=== PATIENT | female | born 1985 | race Caucasian/White ===

== ENCOUNTER 2022-09-30 12:57 | Emergency (ER) | payer OTHER ==
[2022-09-30 13:01] VITALS: RESP 20
[2022-09-30] MEDS ORDERED: SODIUM CHLORIDE 0.9% 1,000 ML IV ONE (13:42)
--- NOTE | 2022-09-30 13:58 | ED ---
General Adult HPI - General Chief complaint: Alcohol Stated complaint: ETOH Time Seen by Provider: 09/30/22 13:00 Source: patient, RN notes reviewed, old records reviewed Mode of arrival: ambulatory Limitations: no limitations - History of Present Illness Initial comments: This is a 37-year-old female who was in the emergency department because her father brought her in because she isn't toxic. Dad states she wants her to be evaluated so that he can also take a rehabilitation. Patient does not want to stay but that does not want take her so we are obligated to see the patient here. Patient has no complaints and states that she doesn't want to be here if she doesn't want any Ativan and believes all of a sudden lying to her about her having to stay. Patient denies any physical complaints today. - Related Data Home Medications Medication Instructions Recorded Confirmed chlordiazePOXIDE HCl [Librium] See Taper PO DIRECTED 09/30/22 09/30/22 Previous Rx's Medication Instructions Recorded Ibuprofen [Motrin] 400 mg PO Q6HR PRN tab 09/29/22 Thiamine [Vitamin B-1] 100 mg PO DAILY 30 Days #30 tab 09/29/22 Allergies Allergy/AdvReac Type Severity Reaction Status Date / Time No Known Allergies Allergy Verified 09/30/22 13:01 Review of Systems ROS Statement: Those systems with pertinent positive or pertinent negative responses have been documented in the HPI. ROS Other: All systems not noted in ROS Statement are negative. Past Medical History Additional Past Medical History / Comment(s): clean from heroin for 3 years. daily cocaine use for last 1-2 months, drinks up to a 5th of vodka within a day and a half for the last 3months. Depression History of Any Multi-Drug Resistant Organisms: None Reported Past Surgical History: No Surgical Hx Reported Past Anesthesia/Blood Transfusion Reactions: No Reported Reaction Past Psychological History: ADD/ADHD, Anxiety, Depression Smoking Status: Vaper Past Alcohol Use History: Abuse, Daily Past Drug Use History: Cocaine, Heroin - Past Family History Mother Family Medical History: Unable to Obtain Father Family Medical History: Unable to Obtain General Exam - General Exam Comments Initial Comments: GENERAL: Patient is well-developed and well-nourished. Patient is nontoxic and well- hydrated and is in no acute distress. Patient appears intoxicated ENT: Neck is soft and supple. No significant lymphadenopathy is noted. Oropharynx i s clear. Moist mucous membranes. Neck has full range of motion without eliciting any pain. EYES: The sclera were anicteric and conjunctiva were pink and moist. Extraocular movements were intact and pupils were equal round and reactive to light. Eyelids were unremarkable. PULMONARY: Patient wouldn't allow me to do CARDIOVASCULAR: Patient would not allow me to do it ABDOMEN: Patient would not allow me to do it SKIN: Skin is clear with no lesions or rashes and otherwise unremarkable. NEUROLOGIC: Patient is alert and oriented x3. Cranial nerves II through XII are grossly intact. Motor and sensory are also intact. Normal speech, volume and content. Symmetrical smile. MUSCULOSKELETAL: Normal extremities with adequate strength and full range of motion. LYMPHATICS: No significant lymphadenopathy is noted PSYCHIATRIC: Patient is uncooperative and aggravated Limitations: no limitations Course Vital Signs 09/30/22 12:59 Temperature 97.5 F L Pulse Rate 113 H Respiratory 20 Rate Blood Pressure 116/66 O2 Sat by Pulse 98 Oximetry Medical Decision Making - Medical Decision Making Was pt. sent in by a medical professional or institution (LAZARO Cruz, PARAPROFESSIONAL INTERPRETER, urgent care, hospital, or jail...) When possible be specific @ -[No] Did you speak to anyone other than the patient for history (EMS, parent, family, police, friend...)? What history was obtained from this source @ -Father gave quite a bit of the history Did you review nursing and triage notes (agree or disagree)? Why? @ -[I reviewed and agree with nursing and triage notes] Were old charts reviewed (outside hosp., previous admission, EMS record, old EKG, old radiological studies, urgent care reports/EKG's, jail records)? Report findings @ -I reviewed prior lab work and prior charts from prior visits Differential Diagnosis (chest pain, altered mental status, abdominal pain women, abdominal pain men, vaginal bleeding, weakness, fever, dyspnea, syncope, headache, dizziness, GI bleed, back pain, seizure, CVA, palpatations, mental health, musculoskeletal)? @ -[not applicable] EKG interpreted by me (3pts min.). @ -[As above] X-rays interpreted by me (1pt min.). @ -[None done] CT interpreted by me (1pt min.). @ -[None done] U/S interpreted by me (1pt. min.). @ -[None done] What testing was considered but not performed or refused? (CT, X-rays, U/S, labs)? Why? @ -[None] What meds were considered but not given or refused? Why? @ -[None] Did you discuss the management of the patient with other professionals (pr ofessionals i.e. , PA, PARAPROFESSIONAL INTERPRETER, lab, RT, psych nurse, psychotherapist social worker, client insights consultant, teacher, supervisor dog license officer, rehabilitation case coordinator)? Give summary @ -[No] Was smoking cessation discussed for >3mins.? @ -[No] Was critical care preformed (if so, how long)? @ -[No] Were there social determinants of health that impacted care today? How? (Homelessness, low income, unemployed, alcoholism, drug addiction, tra nsportation, low edu. Level, literacy, decrease access to med. care, residential, rehab)? @ -[No] Was there de-escalation of care discussed even if they declined (Discuss DNR or withdrawal of care, Hospice)? DNR status @ -[No] What co-morbidities impacted this encounter? (DM, HTN, Smoking, COPD, CAD, Cancer, CVA, ARF, Chemo, Hep., AIDS, mental health diagnosis, sleep apnea, morbid obesity)? @ -[None] Was patient admitted / discharged? Hospital course, mention meds given and route, prescriptions, significant lab abnormalities, going to OR and other pertinent info. @ -Patient was initially very uncooperative but eventually calmed down and dad was calling around CPK get into a rehab facility. Patient's lab work was done there was no gross abnormalities. Patient did want to go to rehab so patient was discharged in the custody of the father Undiagnosed new problem with uncertain prognosis? @ -[No] Drug Therapy requiring intensive monitoring for toxicity (Heparin, Nitro, Insulin, Cardizem)? @ -[No] Were any procedures done? @ -[No] Diagnosis/symptom? @ -Alcohol abuse Acute, or Chronic, or Acute on Chronic? @ -Acute on chronic Uncomplicated (without systemic symptoms) or Complicated (systemic symptoms)? @ -Complicated Side effects of treatment? @ -[No] Exacerbation, Progression, or Severe Exacerbation? @ -[No] Poses a threat to life or bodily function? How? (Chest pain, [place], [place], pneumonia, PE, COPD, DKA, ARF, appy, cholecystitis, CVA, Diverticulitis, Homicidal, Suicidal, threat to staff... and all critical care pts) @ -[No] - Lab Data Result diagrams: 09/30/22 14:16 09/30/22 14:16 Lab Results 09/30/22 09/30/22 Range/Units 14:16 14:16 WBC 6.8 (3.8-10.6) k/uL RBC 4.95 (3.80-5.40) m/uL Hgb 14.4 (11.4-16.0) gm/dL Hct 45.4 (34.0-46.0) % MCV 91.6 (80.0-100.0) fL MCH 29.0 (25.0-35.0) pg MCHC 31.7 (31.0-37.0) g/dL RDW 13.1 (11.5-15.5) % Plt Count 276 (150-450) k/uL MPV 6.8 Neutrophils % 68 % Lymphocytes % 24 % Monocytes % 4 % Eosinophils % 1 % Basophils % 0 % Neutrophils # 4.6 (1.3-7.7) k/uL Lymphocytes # 1.6 (1.0-4.8) k/uL Monocytes # 0.3 (0-1.0) k/uL Eosinophils # 0.1 (0-0.7) k/uL Basophils # 0.0 (0-0.2) k/uL Sodium 147 H (137-145) mmol/L Potassium 3.8 (3.5-5.1) mmol/L Chloride 109 H (98-107) mmol/L Carbon Dioxide 20 L (22-30) mmol/L Anion Gap 18 mmol/L BUN 7 (7-17) mg/dL Creatinine 0.41 L (0.52-1.04) mg/dL Est GFR (CKD-EPI)AfAm >90 (>60 ml/min/1.73 sqM) Est GFR (CKD-EPI)NonAf >90 (>60 ml/min/1.73 sqM) Glucose 100 H (74-99) mg/dL Calcium 8.4 (8.4-10.2) mg/dL Total Bilirubin 0.5 (0.2-1.3) mg/dL AST 117 H (14-36) U/L ALT 84 H (4-34) U/L Alkaline Phosphatase 91 (38-126) U/L Total Protein 8.7 H (6.3-8.2) g/dL Albumin 4.6 (3.5-5.0) g/dL Disposition Clinical Impression: Alcohol abuse Disposition: HOME SELF-CARE Condition: Good Instructions (If sedation given, give patient instructions): Alcohol Intoxication (ED) Additional Instructions: Patient should go to rehabilitation Center Is patient prescribed a controlled substance at d/c from ED?: No Referrals: None,Stated [Primary Care Provider] - 1-2 days Time of Disposition: 16:20
[2022-09-30 14:24] LABS: Basophils % (A) 0 %; Eosinophils # (A) 0.1 k/uL (0-0.7); Eosinophils % (A) 1 %; HCT 45.4 % (34.0-46.0); HGB 14.4 gm/dL (11.4-16.0); Lymphocytes # (A) 1.6 k/uL (1.0-4.8); Lymphocytes % (A) 24 %; MCHC 31.7 g/dL (31.0-37.0); MCV 91.6 fL (80.0-100.0); Mean Platelet Volume 6.8; Monocytes # (A) 0.3 k/uL (0-1.0); Monocytes % (A) 4 %; Neutrophils # (A) 4.6 k/uL (1.3-7.7); Neutrophils % (A) 68 %; Platelet Count 276 k/uL (150-450); RBC 4.95 m/uL (3.80-5.40); RDW 13.1 % (11.5-15.5); WBC 6.8 k/uL (3.8-10.6)
[2022-09-30] MEDS ORDERED: LORazepam 2 MG/ML INJ IV STA (14:24)
[2022-09-30 14:36] LABS: ALT 84 U/L (4-34); African American GFR (CKD) >90 (>60 ml/min/1.73 sqM); Albumin 4.6 g/dL (3.5-5.0); Anion Gap 18 mmol/L; Blood Urea Nitrogen 7 mg/dL (7-17); Calcium 8.4 mg/dL (8.4-10.2); Carbon Dioxide 20 mmol/L (22-30); Chloride 109 mmol/L (98-107); Glucose 100 mg/dL (74-99); Non-African American GFR(CKD) >90 (>60 ml/min/1.73 sqM); Sodium 147 mmol/L (137-145); Total Bilirubin 0.5 mg/dL (0.2-1.3); Total Protein 8.7 g/dL (6.3-8.2)
[2022-09-30 14:38] LABS: AST 117 U/L (14-36); Alkaline Phosphatase 91 U/L (38-126); Potassium 3.8 mmol/L (3.5-5.1)
[2022-09-30 16:47] VITALS: BP 129/69; PULSE 107; TEMP 98.3
== END 2022-09-30 16:46 | disposition home or self-care (01) ==
LOC: EC 12:57
DX: F10.10 Alcohol abuse, uncomplicated (principal); F41.9 Anxiety disorder, unspecified; F17.290 Nicotine dependence, other tobacco product, uncomplicated; F14.90 Cocaine use, unspecified, uncomplicated; F11.90 Opioid use, unspecified, uncomplicated; Z79.899 Other long term (current) drug therapy
CPT/HCPCS: 82075; 36415; 80053; 85025; 99283; 96374; 96361; J2060

== ENCOUNTER 2023-09-18 01:56 | Inpatient (IN) | payer MEDICAID, OTHER ==
--- NOTE | 2023-09-18 04:08 | ED ---
Alcohol HPI - General Source: patient Mode of arrival: ambulatory Limitations: no limitations <Marily Villela - Last Filed: 09/18/23 04:08> - History of Present Illness MD Complaint: alcohol withdrawal -: hour(s) Previous Visits for Alcohol Intoxication?: Yes Recent Trauma: No Associated Symptoms: nausea, tremors Chronic Alcohol Use: Yes <Nick White - Last Filed: 09/28/23 10:38> - General Chief Complaint: Alcohol Stated Complaint: ETOH Time Seen by Provider: 09/18/23 04:08 - History of Present Illness Initial Comments: Quick note: 38-year-old female presenting with alcohol withdrawal. Patient normally drinks 1/5 of vodka per day. Her last drink was 2 hours ago, she drank 2 pints of vodka. She states that she is starting to have shakiness and anxiety. She has history of withdrawal seizures. She is requesting "to be admitted to the psych unit", states that she wants to get her bipolar disorder under control in order to get her alcoholism under control. (Marily Villela) - Related Data Home Medications Medication Instructions Recorded Confirmed Disulfiram [Antabuse] 500 mg PO DAILY 09/18/23 09/18/23 Previous Rx's Medication Instructions Recorded Divalproex [Depakote] 250 mg PO TID 30 Days #90 tab 09/24/23 Sertraline [Zoloft] 50 mg PO DAILY 30 Days #30 tab 09/24/23 Thiamine [Vitamin B-1] 100 mg PO DAILY tab 09/24/23 traZODone HCL [Desyrel] 50 mg PO HS PRN 30 Days #30 tab 09/24/23 Allergies Allergy/AdvReac Type Severity Reaction Status Date / Time No Known Allergies Allergy Verified 09/18/23 10:38 Review of Systems ROS Other: All systems not noted in ROS Statement are negative. <Marily Villela - Last Filed: 09/18/23 04:08> ROS Other: All systems not noted in ROS Statement are negative. Constitutional: Denies: fever, chills Respiratory: Denies: cough, dyspnea Cardiovascular: Reports: palpitations. Denies: chest pain, orthopnea, edema Gastrointestinal: Reports: nausea. Denies: abdominal pain, vomiting, diarrhea Genitourinary: Denies: dysuria, hematuria, abnormal menses Musculoskeletal: Denies: back pain Skin: Denies: rash Neurological: Denies: headache, weakness Psychiatric: Reports: anxiety <Nick White - Last Filed: 09/28/23 10:38> ROS Statement: Those systems with pertinent positive or pertinent negative responses have been documented in the HPI. Past Medical History Additional Past Medical History / Comment(s): clean from heroin for 3 years. [place] cocaine use for last 1-2 months, drinks up to a 5th of vodka within a day and a half for the last 3months. hep C. Depression History of Any Multi-Drug Resistant Organisms: None Reported Past Surgical History: No Surgical Hx Reported Past Anesthesia/Blood Transfusion Reactions: No Reported Reaction Past Psychological History: ADD/ADHD, Anxiety, Depression Smoking Status: Vaper Past Alcohol Use History: Abuse, Daily Past Drug Use History: Cocaine, Heroin - Past Family History Mother Family Medical History: Unable to Obtain Father Family Medical History: Unable to Obtain <Marily Villela - Last Filed: 09/18/23 04:08> General Exam Limitations: no limitations <Marily Villela - Last Filed: 09/18/23 04:08> Limitations: no limitations General appearance: alert Head exam: Present: atraumatic, normocephalic Eye exam: Present: normal appearance. Absent: scleral icterus, conjunctival injection ENT exam: Present: mucous membranes dry Neck exam: Present: normal inspection Respiratory exam: Present: normal lung sounds bilaterally. Absent: respiratory distress, wheezes, rales, rhonchi, stridor, accessory muscle use Cardiovascular Exam: Present: regular rate, normal heart sounds. Absent: systolic murmur, diastolic murmur, rubs, gallop GI/Abdominal exam: Present: soft. Absent: distended, tenderness, guarding, rebound, rigid, mass Extremities exam: Present: normal inspection, normal capillary refill. Absent: pedal edema, calf tenderness Back exam: Present: normal inspection. Absent: CVA tenderness (R), CVA tenderness (L) Neurological exam: Present: alert Psychiatric exam: Present: anxious Skin exam: Present: warm, dry, intact, normal color. Absent: rash <Nick White - Last Filed: 09/28/23 10:38> - General Exam Comments Initial Comments: Visual Physical Exam Vital signs reviewed General: Well-appearing, nontoxic, no acute distress. Head: Normocephalic, atraumatic Eyes: PERRLA, EOMI ENT: Airway patent Chest: Nonlabored breathing Skin: No visual rash, normal skin tone Neuro: Alert and oriented 3 Musculoskeletal: No gross abnormalities (Marily Villela) Course Vital Signs 09/18/23 09/18/23 09/18/23 02:12 05:00 12:00 Temperature 97.7 F 98 F Pulse Rate 79 66 72 Respiratory 18 16 16 Rate Blood Pressure 147/81 110/71 118/65 O2 Sat by Pulse 99 98 99 Oximetry Medical Decision Making <Marily Villela - Last Filed: 09/18/23 04:08> - Lab Data Result diagrams: 09/18/23 05:18 09/21/23 12:20 <Nick White - Last Filed: 09/28/23 10:38> - Medical Decision Making I performed the quick note portion of this visit, electronically signed Marily Villela PA-C (Marily Villela) Was pt. sent in by a medical professional or institution (LAZARO Cruz, CUST[employer] MOTORCYCLE PAINTER, urgent care, hospital, or prison...) When possible be specific @ -[No] Did you speak to anyone other than the patient for history (EMS, parent, family, police, friend...)? What history was obtained from this source @ -[No] Did you review nursing and triage notes (agree or disagree)? Why? @ -[I reviewed and agree with nursing and triage notes] Were old charts reviewed (outside hosp., previous admission, EMS record, old EKG, old radiological studies, urgent care reports/EKG's, prison records)? Report findings @ -[No old charts were reviewed] Differential Diagnosis (chest pain, altered mental status, abdominal pain women, abdominal pain men, vaginal bleeding, weakness, fever, dyspnea, syncope, headache, dizziness, GI bleed, back pain, seizure, CVA, palpatations, mental health, musculoskeletal)? @ -[Differential Mental Health Depression, anxiety, bipolar, psychosis, schizophrenia, borderline personality, situational depression, adjustment disorder, behavioral disorder, brain tumor, malingering, substance abuse, encephalopathy, medication reaction, dementia, hypothyroidism, degenerative neurologic disorder, lupus.... This is not meant to be all-inclusive list EKG interpreted by me (3pts min.). @ -[As above] X-rays interpreted by me (1pt min.). @ -[None done] CT interpreted by me (1pt min.). @ -[None done] U/S interpreted by me (1pt. min.). @ -[None done] What testing was considered but not performed or refused? (CT, X-rays, U/S, labs)? Why? @ -[None] What meds were considered but not given or refused? Why? @ -[None] Did you discuss the management of the patient with other professionals (professionals i.e. Dr., PA, CUSTOM MOTORCYCLE PAINTER, lab, RT, psych nurse, social service technician, detention officer, teacher, forward air controller/air officer, case technician)? Give summary @ -[No] Was smoking cessation discussed for >3mins.? @ -[No] Was critical care preformed (if so, how long)? @ -[No] Were there social determinants of health that impacted care today? How? (Homelessness, low income, unemployed, alcoholism, drug addiction, transportation, low edu. Level, literacy, decrease access to med. care, half-way, rehab)? @ -[No] Was there de-escalation of care discussed even if they declined (Discuss DNR or withdrawal of care, Hospice)? DNR status @ -[No] What co-morbidities impacted this encounter? (DM, HTN, Smoking, COPD, CAD, Cancer, CVA, ARF, Chemo, Hep., AIDS, mental health diagnosis, sleep apnea, morbid obesity)? @ -[None] Was patient admitted / discharged? Hospital course, mention meds given and route, prescriptions, significant lab abnormalities, going to OR and other pertinent info. @ -[This patient is a 38-year-old woman presenting with complaint of worsening depression and having suicidal ideation. She was pending EPS evaluation at the time of shift change. They did subsequently see the patient and she will be admitted to have further mental health evaluation and treatment. Undiagnosed new problem with uncertain prognosis? @ -[No] Drug Therapy requiring intensive monitoring for toxicity (Heparin, Nitro, Insulin, Cardizem)? @ -[No] Were any procedures done? @ -[No] Diagnosis/symptom? @ -[Mood disorder Suicidal ideation Acute, or Chronic, or Acute on Chronic? @ -[Acute Uncomplicated (without systemic symptoms) or Complicated (systemic symptoms)? @ -[default] Side effects of treatment? @ -[No] Exacerbation, Progression, or Severe Exacerbation? @ -[No] Poses a threat to life or bodily function? How? (Chest pain, USA, NC, pneumonia, PE, COPD, DKA, ARF, appy, cholecystitis, CVA, Diverticulitis, Homicidal, Suicidal, threat to staff... and all critical care pts) @ -[Yes there is risk of suicide attempt/completion. (Nick White) - Lab Data Lab Results 09/18/23 09/18/23 09/18/23 Range/Units 05:18 05:18 05:18 WBC 8.8 (3.8-10.6) k/uL RBC 4.26 (3.80-5.40) m/uL Hgb 12.4 (11.4-16.0) gm/dL Hct 38.6 (34.0-46.0) % MCV 90.5 (80.0-100.0) fL MCH 29.0 (25.0-35.0) pg MCHC 32.1 (31.0-37.0) g/dL RDW 13.4 (11.5-15.5) % Plt Count 293 (150-450) k/uL MPV 7.2 Neutrophils % 62 % Lymphocytes % 28 % Monocytes % 5 % Eosinophils % 2 % Basophils % 1 % Neutrophils # 5.5 (1.3-7.7) k/uL Lymphocytes # 2.5 (1.0-4.8) k/uL Monocytes # 0.5 (0-1.0) k/uL Eosinophils # 0.2 (0-0.7) k/uL Basophils # 0.1 (0-0.2) k/uL Sodium (137-145) mmol/L Potassium (3.5-5.1) mmol/L Chloride (98-107) mmol/L Carbon Dioxide (22-30) mmol/L Anion Gap mmol/L BUN (7-17) mg/dL Creatinine (0.52-1.04) mg/dL Est GFR (CKD-EPI)AfAm (>60 ml/min/1.73 sqM) Est GFR (CKD-EPI)NonAf (>60 ml/min/1.73 sqM) Glucose (74-99) mg/dL Estimated Ave Glu mg/dL mg/dL Hemoglobin A1c (<=6.0) % Calcium (8.4-10.2) mg/dL Magnesium (1.6-2.3) mg/dL Total Bilirubin (0.2-1.3) mg/dL AST (14-36) U/L ALT (4-34) U/L Alkaline Phosphatase (38-126) U/L Total Protein (6.3-8.2) g/dL Albumin (3.5-5.0) g/dL Triglycerides (0.00-149.00) mg/dL Cholesterol (0.00-200.00) mg/dL LDL Cholesterol, Calc (0.0-131.0) mg/dL VLDL Cholesterol, Calc (5.00-40.00) mg/dL HDL Cholesterol (40.00-60.00) mg/dL Cholesterol/HDL Ratio Ratio TSH (0.350-5.500) UIU/ML Urine Color Light Yellow Urine Appearance Clear (Clear) Urine pH 6.5 (5.0-8.0) Ur Specific [place] 1.019 (1.001-1.035) Urine Protein Negative (Negative) Urine Glucose (UA) Negative (Negative) Urine Ketones Negative (Negative) Urine Blood Negative (Negative) Urine Nitrite Negative (Negative) Urine Bilirubin Negative (Negative) Urine Urobilinogen <2.0 (<2.0) mg/dL Ur Leukocyte Esterase Negative (Negative) Urine HCG, Qual Not Detected (Not Detectd) Urine Opiates Screen Not Detected (NotDetected) Ur Oxycodone Screen Not Detected (NotDetected) Urine Methadone Screen Not Detected (NotDetected) Ur Barbiturates Screen Not Detected (NotDetected) U Tricyclic Antidepress Not Detected (NotDetected) Ur Phencyclidine Scrn Not Detected (NotDetected) Ur Amphetamines Screen Not Detected (NotDetected) U Methamphetamines Scrn Not Detected (NotDetected) U Benzodiazepines Scrn Detected H (NotDetected) Urine Cocaine Screen Not Detected (NotDetected) U Marijuana (THC) Screen Not Detected (NotDetected) Serum Alcohol mg/dL Influenza Type A (PCR) (Not Detectd) Influenza Type B (PCR) (Not Detectd) RSV (PCR) (Not Detectd) SARS-CoV-2 (PCR) (Not Detectd) 09/18/23 09/18/23 09/18/23 Range/Units 05:18 05:18 05:18 WBC (3.8-10.6) k/uL RBC (3.80-5.40) m/uL Hgb (11.4-16.0) gm/dL Hct (34.0-46.0) % MCV (80.0-100.0) fL MCH (25.0-35.0) pg MCHC (31.0-37.0) g/dL RDW (11.5-15.5) % Plt Count (150-450) k/uL MPV Neutrophils % % Lymphocytes % % Monocytes % % Eosinophils % % Basophils % % Neutrophils # (1.3-7.7) k/uL Lymphocytes # (1.0-4.8) k/uL Monocytes # (0-1.0) k/uL Eosinophils # (0-0.7) k/uL Basophils # (0-0.2) k/uL Sodium 135 L (137-145) mmol/L Potassium 3.4 L (3.5-5.1) mmol/L Chloride 99 (98-107) mmol/L Carbon Dioxide 32 H (22-30) mmol/L Anion Gap 4 mmol/L BUN 13 (7-17) mg/dL Creatinine 0.60 (0.52-1.04) mg/dL Est GFR (CKD-EPI)AfAm >90 (>60 ml/min/1.73 sqM) Est GFR (CKD-EPI)NonAf >90 (>60 ml/min/1.73 sqM) Glucose 121 H (74-99) mg/dL Estimated Ave Glu mg/dL 103 mg/dL Hemoglobin A1c 5.2 (<=6.0) % Calcium 9.1 (8.4-10.2) mg/dL Magnesium 1.7 (1.6-2.3) mg/dL Total Bilirubin 0.5 (0.2-1.3) mg/dL AST 50 H (14-36) U/L ALT 28 (4-34) U/L Alkaline Phosphatase 107 (38-126) U/L Total Protein 7.7 (6.3-8.2) g/dL Albumin 4.2 (3.5-5.0) g/dL Triglycerides 55.30 (0.00-149.00) mg/dL Cholesterol 200.00 (0.00-200.00) mg/dL LDL Cholesterol, Calc 66.9 (0.0-131.0) mg/dL VLDL Cholesterol, Calc 11.06 (5.00-40.00) mg/dL HDL Cholesterol 122.00 H (40.00-60.00) mg/dL Cholesterol/HDL Ratio 1.64 Ratio TSH 3.430 (0.350-5.500) UIU/ML Urine Color Urine Appearance (Clear) Urine pH (5.0-8.0) Ur Specific [place] (1.001-1.035) Urine Protein (Negative) Urine Glucose (UA) (Negative) Urine Ketones (Negative) Urine Blood (Negative) Urine Nitrite (Negative) Urine Bilirubin (Negative) Urine Urobilinogen (<2.0) mg/dL Ur Leukocyte Esterase (Negative) Urine HCG, Qual (Not Detectd) Urine Opiates Screen (NotDetected) Ur Oxycodone Screen (NotDetected) Urine Methadone Screen (NotDetected) Ur Barbiturates Screen (NotDetected) U Tricyclic Antidepress (NotDetected) Ur Phencyclidine Scrn (NotDetected) Ur Amphetamines Screen (NotDetected) U Methamphetamines Scrn (NotDetected) U Benzodiazepines Scrn (NotDetected) Urine Cocaine Screen (NotDetected) U Marijuana (THC) Screen (NotDetected) Serum Alcohol <10 mg/dL Influenza Type A (PCR) (Not Detectd) Influenza Type B (PCR) (Not Detectd) RSV (PCR) (Not Detectd) SARS-CoV-2 (PCR) (Not Detectd) 09/18/23 Range/Units 10:32 WBC (3.8-10.6) k/uL RBC (3.80-5.40) m/uL Hgb (11.4-16.0) gm/dL Hct (34.0-46.0) % MCV (80.0-100.0) fL MCH (25.0-35.0) pg MCHC (31.0-37.0) g/dL RDW (11.5-15.5) % Plt Count (150-450) k/uL MPV Neutrophils % % Lymphocytes % % Monocytes % % Eosinophils % % Basophils % % Neutrophils # (1.3-7.7) k/uL Lymphocytes # (1.0-4.8) k/uL Monocytes # (0-1.0) k/uL Eosinophils # (0-0.7) k/uL Basophils # (0-0.2) k/uL Sodium (137-145) mmol/L Potassium (3.5-5.1) mmol/L Chloride (98-107) mmol/L Carbon Dioxide (22-30) mmol/L Anion Gap mmol/L BUN (7-17) mg/dL Creatinine (0.52-1.04) mg/dL Est GFR (CKD-EPI)AfAm (>60 ml/min/1.73 sqM) Est GFR (CKD-EPI)NonAf (>60 ml/min/1.73 sqM) Glucose (74-99) mg/dL Estimated Ave Glu mg/dL mg/dL Hemoglobin A1c (<=6.0) % Calcium (8.4-10.2) mg/dL Magnesium (1.6-2.3) mg/dL Total Bilirubin (0.2-1.3) mg/dL AST (14-36) U/L ALT (4-34) U/L Alkaline Phosphatase (38-126) U/L Total Protein (6.3-8.2) g/dL Albumin (3.5-5.0) g/dL Triglycerides (0.00-149.00) mg/dL Cholesterol (0.00-200.00) mg/dL LDL Cholesterol, Calc (0.0-131.0) mg/dL VLDL Cholesterol, Calc (5.00-40.00) mg/dL HDL Cholesterol (40.00-60.00) mg/dL Cholesterol/HDL Ratio Ratio TSH (0.350-5.500) UIU/ML Urine Color Urine Appearance (Clear) Urine pH (5.0-8.0) Ur Specific [place] (1.001-1.035) Urine Protein (Negative) Urine Glucose (UA) (Negative) Urine Ketones (Negative) Urine Blood (Negative) Urine Nitrite (Negative) Urine Bilirubin (Negative) Urine Urobilinogen (<2.0) mg/dL Ur Leukocyte Esterase (Negative) Urine HCG, Qual (Not Detectd) Urine Opiates Screen (NotDetected) Ur Oxycodone Screen (NotDetected) Urine Methadone Screen (NotDetected) Ur Barbiturates Screen (NotDetected) U Tricyclic Antidepress (NotDetected) Ur Phencyclidine Scrn (NotDetected) Ur Amphetamines Screen (NotDetected) U Methamphetamines Scrn (NotDetected) U Benzodiazepines Scrn (NotDetected) Urine Cocaine Screen (NotDetected) U Marijuana (THC) Screen (NotDetected) Serum Alcohol mg/dL Influenza Type A (PCR) Not Detected (Not Detectd) Influenza Type B (PCR) Not Detected (Not Detectd) RSV (PCR) Not Detected (Not Detectd) SARS-CoV-2 (PCR) Not Detected (Not Detectd) Disposition <Marily Villela - Last Filed: 09/18/23 04:08> Is patient prescribed a controlled substance at d/c from ED?: No <Nick White - Last Filed: 09/28/23 10:38> Clinical Impression: Mood disorder, Suicidal ideation Disposition: ADMITTED IP TO THIS HOSP Condition: Stable
[2023-09-18] MEDS ORDERED: LORazepam 2 MG/ML INJ IV PRN ×3 (05:04)
[2023-09-18 05:33] LABS: Basophils # (A) 0.1 k/uL (0-0.2); Basophils % (A) 1 %; Eosinophils # (A) 0.2 k/uL (0-0.7); Eosinophils % (A) 2 %; HCT 38.6 % (34.0-46.0); HGB 12.4 gm/dL (11.4-16.0); Lymphocytes # (A) 2.5 k/uL (1.0-4.8); Lymphocytes % (A) 28 %; MCHC 32.1 g/dL (31.0-37.0); MCV 90.5 fL (80.0-100.0); Mean Platelet Volume 7.2; Monocytes # (A) 0.5 k/uL (0-1.0); Monocytes % (A) 5 %; Neutrophils # (A) 5.5 k/uL (1.3-7.7); Neutrophils % (A) 62 %; Platelet Count 293 k/uL (150-450); RBC 4.26 m/uL (3.80-5.40); RDW 13.4 % (11.5-15.5); WBC 8.8 k/uL (3.8-10.6)
[2023-09-18 05:39] LABS: Appearance,Urine Clear (Clear); Bilirubin,Urine Negative (Negative); Blood,Urine Negative (Negative); Color,Urine Light Yellow; Glucose,Urine (UA) Negative (Negative); Ketones,Urine Negative (Negative); Leukocyte Esterase,Urine Negative (Negative); Nitrite,Urine Negative (Negative); PH, Urine 6.5 (5.0-8.0); Protein,Urine Negative (Negative); Specific Gravity,Urine 1.019 (1.001-1.035); Urobilinogen,Urine <2.0 mg/dL (<2.0)
[2023-09-18] MEDS: LORazepam 2 MG/ML INJ IV STA (05:49)
[2023-09-18] MEDS: SODIUM CHLORIDE 0.9% 500 ML 500 ML IV STA (05:49)
[2023-09-18 05:50] LABS: ALT 28 U/L (4-34); AST 50 U/L (14-36); African American GFR (CKD) >90 (>60 ml/min/1.73 sqM); Albumin 4.2 g/dL (3.5-5.0); Alcohol <10 mg/dL; Alkaline Phosphatase 107 U/L (38-126); Anion Gap 4 mmol/L; Blood Urea Nitrogen 13 mg/dL (7-17); Calcium 9.1 mg/dL (8.4-10.2); Carbon Dioxide 32 mmol/L (22-30); Chloride 99 mmol/L (98-107); Glucose 121 mg/dL (74-99); Magnesium 1.7 mg/dL (1.6-2.3); Non-African American GFR(CKD) >90 (>60 ml/min/1.73 sqM); Potassium 3.4 mmol/L (3.5-5.1); Sodium 135 mmol/L (137-145); Total Bilirubin 0.5 mg/dL (0.2-1.3); Total Protein 7.7 g/dL (6.3-8.2)
[2023-09-18 06:09] LABS: Amphetamine Screen,Urine Not Detected (NotDetected); Barbiturate Screen,Urine Not Detected (NotDetected); Benzodiazepines Screen,Urine Detected (NotDetected); Cocaine Screen,Urine Not Detected (NotDetected); Methadone Screen, Urine Not Detected (NotDetected); Opiate Screen,Urine Not Detected (NotDetected); Oxycodone Screen, Urine Not Detected (NotDetected); Phencyclidine Screen,Urine Not Detected (NotDetected); Tricyclic Antidepressant,Urine Not Detected (NotDetected); Urn Cannabinoid Scrn Not Detected (NotDetected)
[2023-09-18] MEDS ORDERED: MAGNESIUM HYDROXIDE 2,400 MG/30 ML CUP PO PRN (11:42)
[2023-09-18] MEDS ORDERED: ACETAMINOPHEN TAB 325 MG TAB PO PRN (11:42)
[2023-09-18] MEDS ORDERED: IBUPROFEN 600 MG TAB PO PRN (11:42)
[2023-09-18] MEDS ORDERED: LORazepam 2 MG/ML INJ IM PRN (11:42)
[2023-09-18] MEDS ORDERED: MAG HYDROX/AL HYDROX/SIMETH 355 ML BOTTLE PO PRN (11:42)
[2023-09-18] MEDS ORDERED: hydrOXYzine HCL 50 MG/ML 1 ML VIAL IM PRN (11:42)
[2023-09-18] MEDS: hydrOXYzine HCL 25 MG TAB PO PRN (16:51)
[2023-09-19] MEDS: LORazepam 1 MG TAB PO PRN ×3 (05:10→19:39)
[2023-09-19 10:09] LABS: Chol/HDL Ratio 1.64 Ratio; LDL Cholesterol,Calculated 66.9 mg/dL (0.0-131.0); VLDL Calculation 11.06 mg/dL (5.00-40.00)
[2023-09-19] MEDS: NALOXONE HCL SUBLINGUAL SCH (10:23)
[2023-09-19] MEDS: NICOTINE 14MG/24HR PATCH TRANSDERM SCH (10:23)
[2023-09-19] MEDS: BUPRENORPHINE HCL SUBLINGUAL SCH (10:23)
[2023-09-19] MEDS ORDERED: LORazepam 2 MG/ML INJ IM PRN ×2 (12:01→12:04)
--- NOTE | 2023-09-19 12:13 | P.HP ---
Psychiatric H&P - . H&P Date: 09/19/23 History & Physical: Allergies Allergy/AdvReac Type Severity Reaction Status Date / Time No Known Allergies Allergy Verified 09/18/23 10:38 Vital Signs Temp 98.8 F 09/19/23 06:27 Pulse 67 09/19/23 06:27 Resp 20 09/19/23 06:27 BP 113/59 09/19/23 06:27 Pulse Ox 97 09/19/23 06:27 FiO2 Intake & Output 09/18/23 09/19/23 09/19/23 18:59 06:59 18:59 Weight 64.093 kg Laboratory Last Values WBC 8.8 k/uL (3.8-10.6) 09/18/23 05:18 RBC 4.26 m/uL (3.80-5.40) 09/18/23 05:18 Hgb 12.4 gm/dL (11.4-16.0) 09/18/23 05:18 Hct 38.6 % (34.0-46.0) 09/18/23 05:18 MCV 90.5 fL (80.0-100.0) 09/18/23 05:18 MCH 29.0 pg (25.0-35.0) 09/18/23 05:18 MCHC 32.1 g/dL (31.0-37.0) 09/18/23 05:18 RDW 13.4 % (11.5-15.5) 09/18/23 05:18 Plt Count 293 k/uL (150-450) 09/18/23 05:18 MPV 7.2 09/18/23 05:18 Neutrophils % 62 % 09/18/23 05:18 Lymphocytes % 28 % 09/18/23 05:18 Monocytes % 5 % 09/18/23 05:18 Eosinophils % 2 % 09/18/23 05:18 Basophils % 1 % 09/18/23 05:18 Neutrophils # 5.5 k/uL (1.3-7.7) 09/18/23 05:18 Lymphocytes # 2.5 k/uL (1.0-4.8) 09/18/23 05:18 Monocytes # 0.5 k/uL (0-1.0) 09/18/23 05:18 Eosinophils # 0.2 k/uL (0-0.7) 09/18/23 05:18 Basophils # 0.1 k/uL (0-0.2) 09/18/23 05:18 Sodium 135 mmol/L (137-145) L 09/18/23 05:18 Potassium 3.4 mmol/L (3.5-5.1) L 09/18/23 05:18 Chloride 99 mmol/L (98-107) 09/18/23 05:18 Carbon Dioxide 32 mmol/L (22-30) H 09/18/23 05:18 Anion Gap 4 mmol/L 09/18/23 05:18 BUN 13 mg/dL (7-17) 09/18/23 05:18 Creatinine 0.60 mg/dL (0.52-1.04) 09/18/23 05:18 Est GFR (CKD-EPI)AfAm >90 (>60 ml/min/1.73 sqM) 09/18/23 05:18 Est GFR (CKD-EPI)NonAf >90 (>60 ml/min/1.73 sqM) 09/18/23 05:18 Glucose 121 mg/dL (74-99) H 09/18/23 05:[address] Glu mg/dL 103 mg/dL 09/18/23 05:18 Hemoglobin A1c 5.2 % (<=6.0) 09/18/23 05:18 Calcium 9.1 mg/dL (8.4-10.2) 09/18/23 05:18 Magnesium 1.7 mg/dL (1.6-2.3) 09/18/23 05:18 Total Bilirubin 0.5 mg/dL (0.2-1.3) 09/18/23 05:18 AST 50 U/L (14-36) H 09/18/23 05:18 ALT 28 U/L (4-34) 09/18/23 05:18 Alkaline Phosphatase 107 U/L (38-126) 09/18/23 05:18 Total Protein 7.7 g/dL (6.3-8.2) 09/18/23 05:18 Albumin 4.2 g/dL (3.5-5.0) 09/18/23 05:18 Triglycerides 55.30 mg/dL (0.00-149.00) 09/18/23 05:18 Cholesterol 200.00 mg/dL (0.00-200.00) 09/18/23 05:18 LDL Cholesterol, Calc 66.9 mg/dL (0.0-131.0) 09/18/23 05:18 VLDL Cholesterol, Calc 11.06 mg/dL (5.00-40.00) 09/18/23 05:18 HDL Cholesterol 122.00 mg/dL (40.00-60.00) H 09/18/23 05:18 Cholesterol/HDL Ratio 1.64 Ratio 09/18/23 05:18 TSH 3.430 UIU/ML (0.350-5.500) 09/18/23 05:18 Urine Color Light Yellow 09/18/23 05:18 Urine Appearance Clear (Clear) 09/18/23 05:18 Urine pH 6.5 (5.0-8.0) 09/18/23 05:18 Ur Specific [place] 1.019 (1.001-1.035) 09/18/23 05:18 Urine Protein Negative (Negative) 09/18/23 05:18 Urine Glucose (UA) Negative (Negative) 09/18/23 05:18 Urine Ketones Negative (Negative) 09/18/23 05:18 Urine Blood Negative (Negative) 09/18/23 05:18 Urine Nitrite Negative (Negative) 09/18/23 05:18 Urine Bilirubin Negative (Negative) 09/18/23 05:18 Urine Urobilinogen <2.0 mg/dL (<2.0) 09/18/23 05:18 Ur Leukocyte Esterase Negative (Negative) 09/18/23 05:18 Urine HCG, Qual Not Detected (Not Detectd) 09/18/23 05:18 Urine Opiates Screen Not Detected (NotDetected) 09/18/23 05:18 Ur Oxycodone Screen Not Detected (NotDetected) 09/18/23 05:18 Urine Methadone Screen Not Detected (NotDetected) 09/18/23 05:18 Ur Barbiturates Screen Not Detected (NotDetected) 09/18/23 05:18 U Tricyclic Antidepress Not Detected (NotDetected) 09/18/23 05:18 Ur Phencyclidine Scrn Not Detected (NotDetected) 09/18/23 05:18 Ur Amphetamines Screen Not Detected (NotDetected) 09/18/23 05:18 U Methamphetamines Scrn Not Detected (NotDetected) 09/18/23 05:18 U Benzodiazepines Scrn Detected (NotDetected) H 09/18/23 05:18 Urine Cocaine Screen Not Detected (NotDetected) 09/18/23 05:18 U Marijuana (THC) Screen Not Detected (NotDetected) 09/18/23 05:18 Serum Alcohol <10 mg/dL 09/18/23 05:18 Influenza Type A (PCR) Not Detected (Not Detectd) 09/18/23 10:32 Influenza Type B (PCR) Not Detected (Not Detectd) 09/18/23 10:32 RSV (PCR) Not Detected (Not Detectd) 09/18/23 10:32 SARS-CoV-2 (PCR) Not Detected (Not Detectd) 09/18/23 10:32 09/19/23 12:07 this is a 38-year-old female with long history of alcohol use disorder and questionable bipolar disorder was hospital is after patient presents to the ER in a state of acute psychomotor agitation or dysphoria feelings of helplessness hopelessness and suicidal ideations Patient also admits that she has a history of withdrawal seizures and has been drinking quite heavily up to a 1/5 of vodka a day Patient states that she has never given herself enough time and indications for her bipolar disorder She says that she is also been on Suboxone in the past but wants to get off it and has been slowly tapering it off She says that she currently lives with her family and is unemployed She said that she is hoping to get detoxed and get on some proper medications She admits that she came in with depression and suicide ideations but denies any suicidal ideations or plans at this time Patient reports that she has been hospitalized on a few occasions mainly for detox Past history personal social history patient this time continues to be wanting to sleep and was unable to give any specific details Further details will be collected at a later time and patient is more cooperative Patient stated that she just came into the hospital yesterday and is tired has not had any sleep yesterday night MENTAL STATUS EXAM: General Appearance: Patient appears to be stated age is alert, directable, and attempts to cooperate. Patient appears to have fair hygiene and grooming. Patient has a hoodie on and was sleeping at with her head covered Behavior: Patient is laying in her bed without any agitated behavior. Speech: Patient's speech is fluent and nonpressured. Mood/Affect: Patient reports their mood is fair affect is congruent Suicidality/Homicidality: Patient is eyes any SI and HI. Perceptions: Patient denies any visual hallucinations and denies any auditory hallucinations Though content/process: There is no evidence of any delusional thought content and thought process is linear and goal-directed. Memory and concentration: AOX3, grossly intact for the purposes of this session. 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 Alcohol withdrawal seizures by history rule out bipolar disorder by history Plan: The patient will be hospitalized on the unit for further evaluation and treatment Therapy will be focused on providing supportive care improving her coping abilities with a multimodal treatment Patient also participate in on the [facility] individual milieu group OT RT PT and pharmacotherapy Approximate length of stay will be 7-10 days Patient will be initially placed onCIWA recall for withdrawal symptoms and management Patient also has agreed to be started on Depakote 250 mg 3 times a day which may also be protected against withdrawals and Zyprexa for 5 mg at bedtime for agitation and anxiety and restlessness Monitor for EPS tremor started dyskinesia akathisia QTC prolongation exotropia Encourage perspiration on on the [facility] early childhood services coordinator on board for discharge planning Zack Donald M.D.
[2023-09-19] MEDS: DIVALPROEX 250 MG TABLET.DR PO SCH (16:31)
--- NOTE | 2023-09-20 04:34 | P.CONS ---
History of Present Illness - Reason for Consult Consult date: 09/20/23 - History of Present Illness The patient is a 38-year-old female with a PMH of alcohol abuse who had presented to the emergency room wishing to detox. The patient was admitted to the mental health unit where she was seen and evaluated accompanied by mental health unit RN. The patient reports that she drinks a pint of hard liquor daily and has been doing so for the past several weeks. She does report a history of alcohol withdrawal with seizures. Reports that her last drink was 2 hours prior to arrival roughly at midnight on 09/17. Denies any physical complaints at the time of interview. Denied experiencing chest discomfort, shortness of breath, fever, chills, cough, nausea, vomiting, abdominal pain, diarrhea. Denied additional illicit substance use or tobacco use. Review of systems: Pertinent positives and negatives as discussed in HPI, a complete review of systems was performed and all other systems are negative. Physical examination: General: non toxic, no distress, appears at stated age, normal weight Derm: no unusual rashes/lesions, no unusual ecchymoses, warm, dry Head: atraumatic, normocephalic, symmetric Eyes: EOMI, no lid lag, anicteric sclera ENT: Nose and ears atraumatic, no thrush, no pharyngeal erythema Neck: trachea midline, supple Mouth: no lip lesion, mucus membranes moist Cardiovascular: S1S2 reg, no murmur, no edema Lungs: CTA bilateral, no rhonchi, no rales , no accessory muscle use Abdominal: soft, nontender to palpation, no guarding Ext: no gross muscle atrophy, no contractures, Neuro: No gross focal neuro deficits noted Psych: Alert, oriented, appropriate affect Assessment: Alcohol abuse, impending withdrawal Hypokalemia Hyperglycemia Imaging: None performed Data Review: Laboratory evaluation was reviewed with sodium 135, potassium 3.4, CO2 32, A1c 5.2, with urine toxicology positive for benzodiazepines with UA unremarkable and respiratory viral panel unremarkable Plan: Strongly advised on the importance of cessation from alcohol use Continue patient on thiamine with Ativan as needed Replace potassium and monitor for improvement Thank you for allowing us to participate in the care of this patient. We will follow peripherally. Do not hesitate to contact us with questions. Someone can be reached from the [facility] hospitalist group at all hours of the day at [phone]. Past Medical History Additional Past Medical History / Comment(s): clean from heroin for 3 years. daily cocaine use for last 1-2 months, drinks up to a 5th of vodka within a day and a half for the last 3months. hep C. Depression History of Any Multi-Drug Resistant Organisms: None Reported Past Surgical History: No Surgical Hx Reported Past Anesthesia/Blood Transfusion Reactions: No Reported Reaction Past Psychological History: ADD/ADHD, Anxiety, Depression Smoking Status: Vaper Past Alcohol Use History: Abuse, Daily Additional Past Alcohol Use History / Comment(s): drinks a 5th of vodka in a day and a half. Past Drug Use History: Cocaine, Heroin Additional Drug Use History / Comment(s): last use of heroin was 5 years. last cocaine use was 09/26/22. last alcohol use was 09/26/22 1100am - Past Family History Mother Family Medical History: Unable to Obtain Father Family Medical History: Unable to Obtain Medications and Allergies Home Medications Medication Instructions Recorded Confirmed Type Buprenorphine HCl/Naloxone HCl 1 tab SL DAILY 09/18/23 09/18/23 History [Buprenorphine-Nalox 2-0.5MG Tb] Disulfiram [Antabuse] 500 mg PO DAILY 09/18/23 09/18/23 History Ondansetron Odt [Zofran Odt] 4 mg PO Q8HR PRN 09/18/23 09/18/23 History Allergies Allergy/AdvReac Type Severity Reaction Status Date / Time No Known Allergies Allergy Verified 09/18/23 10:38 Physical Exam Vitals: Vital Signs Temp Pulse Resp BP Pulse Ox 09/19/23 06:27 98.8 F 67 20 113/59 97 Results CBC & Chem 7: 09/18/23 05:18 09/18/23 05:18 Labs: Abnormal Lab Results - Last 24 Hours (Table) 09/18/23 Range/Units 05:18 HDL Cholesterol 122.00 H (40.00-60.00) mg/dL
[2023-09-20] MEDS: OLANZapine 5 MG TAB PO SCH (09:48)
--- NOTE | 2023-09-20 11:17 | P.PN ---
Subjective Progress Note Date: 09/20/23 Date: 09/20/2023 Subjective data: Patient was seen and chart was reviewed and case discussed with the nursing staff Patient was laying in her bed comfortably and does not appear to be in any acute distress patient however woke up very easily and was cooperative during the interview She makes good eye contact She states that emotionally she is feeling better She feels that the medications are helpful She denies that she is experiencing any withdrawal symptoms She states that her depression and anxiety seems to be getting better Past history personal social history Patient reports that she currently lives with her boyfriend and that she has 5 children She states that she is currently unemployed MENTAL STATUS EXAM: General Appearance: Patient appears to be stated age is alert, directable, and attempts to cooperate. Patient appears to have fair hygiene and grooming. Patient has a hoodie on and was sleeping at with her head covered Behavior: Patient is laying in her bed without any agitated behavior. Speech: Patient's speech is fluent and nonpressured. Mood/Affect: Patient reports their mood is fair affect is congruent Suicidality/Homicidality: Patient is eyes any SI and HI. Perceptions: Patient denies any visual hallucinations and denies any auditory hallucinations Though content/process: There is no evidence of any delusional thought content and thought process is linear and goal-directed. Memory and concentration: AOX3, grossly intact for the purposes of this session. 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 Alcohol withdrawal seizures by history rule out bipolar disorder by history Plan: The patient Has been hospitalized on the unit for further evaluation and treatment Therapy will be focused on providing supportive care improving her coping abilities with a multimodal treatment Patient also participate in on the [facility] individual milieu group OT RT PT and pharmacotherapy Approximate length of stay will be 7-10 days Patient will be initially placed onCIWA recall for withdrawal symptoms and management Patient also has agreed to be started on Depakote 250 mg 3 times a day which may also be protected against withdrawals and Zyprexa for 5 mg at bedtime for agitation and anxiety and restlessness Monitor for EPS tremor started dyskinesia akathisia QTC prolongation exotropia Encourage perspiration on on the [facility] loan services professional on board for discharge planning Zack Donald M.D. Objective - Vital Signs Vital signs: Vital Signs Temp 98.4 F 09/20/23 06:00 Pulse 67 09/20/23 06:00 Resp 21 09/20/23 06:00 BP 109/56 09/20/23 06:00 Pulse Ox 98 09/20/23 06:00 FiO2 Intake & Output 09/19/23 09/20/23 09/20/23 18:59 06:59 18:59 Weight 60.895 kg - Labs CBC & Chem 7: 09/18/23 05:18 09/18/23 05:18
[2023-09-20] MEDS: traZODone HCL 50 MG TAB PO PRN (20:34)
[2023-09-21] MEDS: THIAMINE 100 MG TAB PO SCH (09:27)
[2023-09-21 13:12] LABS: African American GFR (CKD) >90 (>60 ml/min/1.73 sqM); Anion Gap 10 mmol/L; Blood Urea Nitrogen 11 mg/dL (7-17); Calcium 9.5 mg/dL (8.4-10.2); Carbon Dioxide 25 mmol/L (22-30); Chloride 106 mmol/L (98-107); Glucose 98 mg/dL (74-99); Non-African American GFR(CKD) >90 (>60 ml/min/1.73 sqM); Potassium 4.6 mmol/L (3.5-5.1); Sodium 141 mmol/L (137-145)
--- NOTE | 2023-09-21 21:38 | P.HP ---
Psychiatric H&P - . H&P Date: 09/21/23 History & Physical: Allergies Allergy/AdvReac Type Severity Reaction Status Date / Time No Known Allergies Allergy Verified 09/18/23 10:38 Vital Signs Temp 98.4 F 09/20/23 06:00 Pulse 67 09/20/23 06:00 Resp 21 09/20/23 06:00 BP 109/56 09/20/23 06:00 Pulse Ox 98 09/20/23 06:00 FiO2 Laboratory Last Values WBC 8.8 k/uL (3.8-10.6) 09/18/23 05:18 RBC 4.26 m/uL (3.80-5.40) 09/18/23 05:18 Hgb 12.4 gm/dL (11.4-16.0) 09/18/23 05:18 Hct 38.6 % (34.0-46.0) 09/18/23 05:18 MCV 90.5 fL (80.0-100.0) 09/18/23 05:18 MCH 29.0 pg (25.0-35.0) 09/18/23 05:18 MCHC 32.1 g/dL (31.0-37.0) 09/18/23 05:18 RDW 13.4 % (11.5-15.5) 09/18/23 05:18 Plt Count 293 k/uL (150-450) 09/18/23 05:18 MPV 7.2 09/18/23 05:18 Neutrophils % 62 % 09/18/23 05:18 Lymphocytes % 28 % 09/18/23 05:18 Monocytes % 5 % 09/18/23 05:18 Eosinophils % 2 % 09/18/23 05:18 Basophils % 1 % 09/18/23 05:18 Neutrophils # 5.5 k/uL (1.3-7.7) 09/18/23 05:18 Lymphocytes # 2.5 k/uL (1.0-4.8) 09/18/23 05:18 Monocytes # 0.5 k/uL (0-1.0) 09/18/23 05:18 Eosinophils # 0.2 k/uL (0-0.7) 09/18/23 05:18 Basophils # 0.1 k/uL (0-0.2) 09/18/23 05:18 Sodium 141 mmol/L (137-145) 09/21/23 12:20 Potassium 4.6 mmol/L (3.5-5.1) 09/21/23 12:20 Chloride 106 mmol/L (98-107) 09/21/23 12:20 Carbon Dioxide 25 mmol/L (22-30) 09/21/23 12:20 Anion Gap 10 mmol/L 09/21/23 12:20 BUN 11 mg/dL (7-17) 09/21/23 12:20 Creatinine 0.66 mg/dL (0.52-1.04) 09/21/23 12:20 Est GFR (CKD-EPI)AfAm >90 (>60 ml/min/1.73 sqM) 09/21/23 12:20 Est GFR (CKD-EPI)NonAf >90 (>60 ml/min/1.73 sqM) 09/21/23 12:20 Glucose 98 mg/dL (74-99) 09/21/23 12:[address] Glu mg/dL 103 mg/dL 09/18/23 05:18 Hemoglobin A1c 5.2 % (<=6.0) 09/18/23 05:18 Calcium 9.5 mg/dL (8.4-10.2) 09/21/23 12:20 Magnesium 1.7 mg/dL (1.6-2.3) 09/18/23 05:18 Total Bilirubin 0.5 mg/dL (0.2-1.3) 09/18/23 05:18 AST 50 U/L (14-36) H 09/18/23 05:18 ALT 28 U/L (4-34) 09/18/23 05:18 Alkaline Phosphatase 107 U/L (38-126) 09/18/23 05:18 Total Protein 7.7 g/dL (6.3-8.2) 09/18/23 05:18 Albumin 4.2 g/dL (3.5-5.0) 09/18/23 05:18 Triglycerides 55.30 mg/dL (0.00-149.00) 09/18/23 05:18 Cholesterol 200.00 mg/dL (0.00-200.00) 09/18/23 05:18 LDL Cholesterol, Calc 66.9 mg/dL (0.0-131.0) 09/18/23 05:18 VLDL Cholesterol, Calc 11.06 mg/dL (5.00-40.00) 09/18/23 05:18 HDL Cholesterol 122.00 mg/dL (40.00-60.00) H 09/18/23 05:18 Cholesterol/HDL Ratio 1.64 Ratio 09/18/23 05:18 TSH 3.430 UIU/ML (0.350-5.500) 09/18/23 05:18 Urine Color Light Yellow 09/18/23 05:18 Urine Appearance Clear (Clear) 09/18/23 05:18 Urine pH 6.5 (5.0-8.0) 09/18/23 05:18 Ur Specific [place] 1.019 (1.001-1.035) 09/18/23 05:18 Urine Protein Negative (Negative) 09/18/23 05:18 Urine Glucose (UA) Negative (Negative) 09/18/23 05:18 Urine Ketones Negative (Negative) 09/18/23 05:18 Urine Blood Negative (Negative) 09/18/23 05:18 Urine Nitrite Negative (Negative) 09/18/23 05:18 Urine Bilirubin Negative (Negative) 09/18/23 05:18 Urine Urobilinogen <2.0 mg/dL (<2.0) 09/18/23 05:18 Ur Leukocyte Esterase Negative (Negative) 09/18/23 05:18 Urine HCG, Qual Not Detected (Not Detectd) 09/18/23 05:18 Urine Opiates Screen Not Detected (NotDetected) 09/18/23 05:18 Ur Oxycodone Screen Not Detected (NotDetected) 09/18/23 05:18 Urine Methadone Screen Not Detected (NotDetected) 09/18/23 05:18 Ur Barbiturates Screen Not Detected (NotDetected) 09/18/23 05:18 U Tricyclic Antidepress Not Detected (NotDetected) 09/18/23 05:18 Ur Phencyclidine Scrn Not Detected (NotDetected) 09/18/23 05:18 Ur Amphetamines Screen Not Detected (NotDetected) 09/18/23 05:18 U Methamphetamines Scrn Not Detected (NotDetected) 09/18/23 05:18 U Benzodiazepines Scrn Detected (NotDetected) H 09/18/23 05:18 Urine Cocaine Screen Not Detected (NotDetected) 09/18/23 05:18 U Marijuana (THC) Screen Not Detected (NotDetected) 09/18/23 05:18 Serum Alcohol <10 mg/dL 09/18/23 05:18 Influenza Type A (PCR) Not Detected (Not Detectd) 09/18/23 10:32 Influenza Type B (PCR) Not Detected (Not Detectd) 09/18/23 10:32 RSV (PCR) Not Detected (Not Detectd) 09/18/23 10:32 SARS-CoV-2 (PCR) Not Detected (Not Detectd) 09/18/23 10:32 09/21/23 21:37 Psychiatric Evaluation Identifying Data: Ms. Manley is 38 years old, , W.F., who lives in [place], [place] in a house with her . Chief Complaint: I want to get my bipolar stabilized. History of Psychiatric Illness- Current psychiatric History: The patient noted that she came to the hospital because she needed help and was getting very depressed and suicidal. The patient noted that she started getting depressed in past 6 months due to different stressor. She called different places for an appointment but every place had a long waitlist. The patient started self-medicating with Alcohol. This did not help her and she continued getting worse and eventually to come to the hospital to seek help. She indicated that she was going was going to [facility]. She was prescribed Suboxone and Antabuse. She had stopped taking Antabuse for couple of days. Before drinking. She had no psychiatric treatment since the age of 14. Before that she was diagnosed with ADHD and Bipolar disorder. She was given, Wellbutrin, Cymbalta, and Prozac. None of these medications worked. She quit taking treatment age 14. She has no history of past psychiatric treatment. She no History of SI or HI Her current symptoms consist of emotional instability. She noted that some days get up in good mood with interest in doing things around home, taking kids to the school and stays in good mood. Some day she gets up with depressed mood with interest in doing anything, she does not take shower, feels sad, unmotivated, and lazy. She does not take kids to the school, gets irritable. The patient stated that she in up mood 2-3 weeks and down 1 week in a month. She has been having mood swings since her teenage. These mood swings have been getting since started having children. Past Psychiatric History: As stated above. Past Medication History: Wellbutrin, Cymbalta, Prozac. She did not respond to these medications. Leading questions: The patient admitted to Depression and Anxiety. Denied SI or HI. Denied symptoms consistent with psychosis Drugs and alcohol history: The patient noted abusing Alcohol and opioids. The patient noted that she has had Alcohol withdrawal in the past. She noted having Alcohol withdrawal seizure three weeks. She went to [facility]. She discharged with Librium and Lamictal from the ER. She abused Heroin. She has been clean since getting on Suboxone 13 years ago. She was prescribed Antabuse 1 weeks ago. Tobacco use: Vapes Past Medical history: None Family History of Psychiatric Disorder: The patient denied. Social History and Family History: The patient was born and raised [place]; [place] She grew up with her brother. She finished [employer]. She got her associates in Psychology. She has been for 8 years. She has 5 kids. OTC: None Allergies: None Objective: MSE: Alert and attentive. Orientation times three Dressed and Groomed: Appropriately. Pleasant and cooperative. Psychomotor Activity: Normal. Speech: Normal in tone, quality, and quantity. Mood: Depressed and anxious. Affect: Consistent with mood. SI or HI: None. Perceptual disturbance: None. Thought Content: No paranoia or other delusional thinking noted. Thought Process: Normal. Cognition: Intact Judgment and Insight: Poor. AIMS: Normal Labs: Ordered. Diagnosis: Bipolar Disorder Type II Borderline Personality Traits Plan and Recommendations: Zoloft 50 mg daily, Lamictal 25 mg po daily. Monitor MS and side effects of medications and adjust medications accordingly. Provide supportive psychotherapy and psychoeducation.
[2023-09-22] MEDS: SERTRALINE 50 MG TAB PO SCH (08:19)
[2023-09-23 05:40] VITALS: RESP 16; TEMP 97.4
--- NOTE | 2023-09-23 08:53 | P.PN ---
Progress Note - Text Progress Note Date: 09/22/23 NOTE FOR 09/22/2023 In-Patient Follow-up Chief Complaint: I am feeling much better Subjective: The patient noted that she is feeling much better after getting alcohol and suboxone out of system. She also noted that her primary to come to the hospital was to get on Medication. She feels improved and would like to leave as soon possible because of her kids. She stated that the kids need her. She does not think her can handle them by himself. Leading questions: The patient admitted to Depression and Anxiety. Denied SI or HI. Denied symptoms consistent with psychosis Sleep and Appetite: Improved. Interim History: Behavioral Changes: PRN meds/isolation/restraints/ change in status: Ativan for the withdrawal last night. Change in medical condition: No change. Change in medications: No change. Side effects from Medications: None. Objective- MSE: Alert and attentive. Orientation times three. Dressed and Groomed: Appropriately. Pleasant and cooperative. Psychomotor Activity: Normal. Speech: Normal in tone, quality, and quantity. Mood: Depressed and anxious. Affect: Appropriate to the mood. SI or HI: None. Perceptual disturbance: None. Thought Content: No paranoia or other delusional thinking noted. Thought Process: Normal. Cognition: Intact Judgment and Insight: Good AIMS: Normal. Labs: Reviewed with patients. Diagnosis: No change. Plan and recommendation: Continue current Medications. Monitor MS and side effects of medications and adjust medications accordingly. Provide supportive psychotherapy. The patient provided psychoeducation. The patient provided Substance abuse counseling. Smoke cessation therapy. The patient to continue attending the [facility]. Test ordered. Medication Consent with explanation of risk/benefits and side effects: Explained and obtained.
--- NOTE | 2023-09-23 13:38 | P.PN ---
Progress Note - Text Progress Note Date: 09/23/23 In-Patient Follow-up Chief Complaint: I am improved since taking the medications Subjective: The patient noted that she is evening out in her mood. Her depression is improving. He motivation is improving. She is less irritable. Her sleep turner improved. She getting up in the morning and taking care of herself. She is motivated to go to groups. She interacting staff and peers. Overll, patient seems to improving good. No side effects of medications noted. The patient requested to have n appointment with [facility] before discharge for out-pt follow-up. Leading questions: The patient admitted improvement in Depression and Anxiety. Denied SI or HI. Denied symptoms consistent with psychosis Sleep and Appetite: Improved. Interim History: Behavioral Changes: PRN meds/isolation/restraints/ change in status: Ativan for the withdrawal last night. Change in medical condition: No change. Change in medications: No change. Side effects from Medications: None. Objective- MSE: Alert and attentive. Orientation times three. Dressed and Groomed: Appropriately. Pleasant and cooperative. Psychomotor Activity: Normal. Speech: Normal in tone, quality, and quantity. Mood: Mildly depressed and anxious. Affect: Appropriate to the mood. SI or HI: None. Perceptual disturbance: None. Thought Content: No paranoia or other delusional thinking noted. Thought Process: Normal. Cognition: Intact Judgment and Insight: Good AIMS: Normal. Labs: No new labs. Diagnosis: No change. Plan and recommendation: Continue current Medications. Monitor MS and side effects of medications and adjust medications accordingly. Provide supportive psychotherapy. The patient provided psychoeducation. The patient provided Substance abuse counseling. Smoke cessation therapy. The patient to continue attending the [facility]. Medication Consent with explanation of risk/benefits and side effects: Explained and obtained.
[2023-09-24 08:37] VITALS: BP 109/57; PULSE 79
--- NOTE | 2023-09-24 20:16 | P.DS ---
Providers Date of admission: 09/18/23 11:36 Expected date of discharge: 09/24/23 Attending physician: Checo Diaz MD Consults: 09/18/23 11:42 Consult Physician Routine Consulting Provider: Krishna Mishra Consult Reason/Comments: Medical H&P Do you want consulting provider notified?: Yes Primary care physician: Stated None - Discharge Diagnosis(es) (1) Bipolar disorder Status: Acute Priority: High (2) Borderline personality disorder in adult Status: Acute Priority: Medium Hospital Course: Discharge Summary HPI: Identifying Data: Ms. Manley is 38 years old, , W.F., who lives in [place], [place] in a house with her . Chief Complaint: I want to get my bipolar stabilized. History of Psychiatric Illness- Current psychiatric History: The patient noted that she came to the hospital because she needed help and was getting very depressed and suicidal. The patient noted that she started getting depressed in past 6 months due to different stressor. She called different places for an appointment but every place had a long waitlist. The patient started self-medicating with Alcohol. This did not help her and she continued getting worse and eventually to come to the hospital to seek help. She indicated that she was going was going to [facility]. She was prescribed Suboxone and Antabuse. She had stopped taking Antabuse for couple of days. Before drinking. She had no psychiatric treatment since the age of 14. Before that she was diagnosed with ADHD and Bipolar disorder. She was given, Wellbutrin, Cymbalta, and Prozac. None of these medications worked. She quit taking treatment age 14. She has no history of past psychiatric treatment. She no History of SI or HI Her current symptoms consist of emotional instability. She noted that some days get up in good mood with interest in doing things around home, taking kids to the school and stays in good mood. Some day she gets up with depressed mood with interest in doing anything, she does not take shower, feels sad, unmotivated, and lazy. She does not take kids to the school, gets irritable. The patient stated that she in up mood 2-3 weeks and down 1 week in a month. She has been having mood swings since her teenage. These mood swings have been getting since started having children. Hospital Course: After admission, the patient was started on Zoloft and Depakote. She discontinued taking her Suboxone. The patient felt much improved with being off Suboxone and Alcohol. She also started getting benefit of Depakote and Zoloft. Beside this the patient was involved in [facility] and individual psychotherapy. She reconstituted quickly. Her depression and anxiety improved substantially. Her suicidal thoughts abated. She was considered to be stable to be discharged as an out-pt with follow-up. MSE: Alert and attentive. Orientation times three Dressed and Groomed: Appropriately. Pleasant and cooperative. Psychomotor Activity: Normal. Speech: Normal in tone, quality, and quantity. Mood: Depressed and anxious. Affect: Consistent with mood. SI or HI: None. Perceptual disturbance: None. Thought Content: No paranoia or other delusional thinking noted. Thought Process: Normal. Cognition: Intact Judgment and Insight: Poor. Diagnosis: Bipolar Disorder Type II Borderline Personality Traits Plan: The patient to be discharged today. The patient has attained good improvement since admission. SHe is stable to be followed as an outpatient. The patient is not suicidal or Homicidal. He does not pose any harm to self or others. The patient remains at a greater risk of self-harm or harm to others than general population on a chronic basis due to psychiatric illness and substance abuse. The patient will continue taking following medication post discharge. The importance of medication compliance and maintaining regular appointments at psychiatric out-pt and PCP clinic were explained and encouraged. The patient was also advised to seek alcohol counseling and attend AA meetings. The patient understood and agreed with the recommendations. foundry worker apprentice to arrange for and conduct family meeting to ensure safety upon discharge and answer any questions. The social secretary to arrange for patients follow-up appointments at [facility] for psychiatric care along with follow-up with PCP. The patient provided psychoeducation. Advised to call 911 or go to nearest ED or call this hospital in case of acute worsening of symptomatology, severe side effects or having suicidal, homicidal thoughts and feeling unsafe at home. Patient Condition at Discharge: Stable Plan - Discharge Summary Discharge Rx Participant: Yes New Discharge Prescriptions: New Divalproex [Depakote] 250 mg PO TID 30 Days #90 tab traZODone HCL [Desyrel] 50 mg PO HS PRN 30 Days #30 tab PRN Reason: Insomnia Sertraline [Zoloft] 50 mg PO DAILY 30 Days #30 tab Thiamine [Vitamin B-1] 100 mg PO DAILY tab Continue Disulfiram [Antabuse] 500 mg PO DAILY Discontinued Buprenorphine HCl/Naloxone HCl [Buprenorphine-Nalox 2-0.5MG Tb] 1 tab SL DAILY Ondansetron Odt [Zofran Odt] 4 mg PO Q8HR PRN PRN Reason: Nausea Discharge Medication List Disulfiram [Antabuse] 500 mg PO DAILY 09/18/23 [History] Divalproex [Depakote] 250 mg PO TID 30 Days #90 tab 09/24/23 [Rx] Sertraline [Zoloft] 50 mg PO DAILY 30 Days #30 tab 09/24/23 [Rx] Thiamine [Vitamin B-1] 100 mg PO DAILY tab 09/24/23 [Rx] traZODone HCL [Desyrel] 50 mg PO HS PRN 30 Days #30 tab 09/24/23 [Rx] Follow up Appointment(s)/Referral(s): [facility] [Outside] - 09/25/23 1:30 pm (with intake) [facility] [NON-STAFF] - 1 Week Patient Instructions/Handouts: Depression (DC), Generalized Anxiety Disorder (ED)
== END 2023-09-24 12:34 | disposition home or self-care (01) | DRG 753 ==
LOC: EC 01:56 → 3MHU 11:36
PROVIDERS: ADMIT Psychiatry & Neurology Psychiatry; ATTEND Psychiatry & Neurology Psychiatry
DX: F31.81 Bipolar II disorder (principal); F10.139 Alcohol abuse with withdrawal, unspecified; F41.9 Anxiety disorder, unspecified; E87.6 Hypokalemia; F11.11 Opioid abuse, in remission; F90.9 Attention-deficit hyperactivity disorder, unspecified type; F60.3 Borderline personality disorder; R73.9 Hyperglycemia, unspecified; B19.20 Unspecified viral hepatitis C without hepatic coma; R45.851 Suicidal ideations; R45.1 Restlessness and agitation; Z56.0 Unemployment, unspecified; R56.9 Unspecified convulsions; Z79.899 Other long term (current) drug therapy; Z11.52 Encounter for screening for COVID-19; Z28.21 Immunization not carried out because of patient refusal
CPT/HCPCS: 36415; 80048; 80053; 80061; 80306; 80320; 81003; 81025; 82075; 83036; 83735; 84443; 85025; 87636; 96360; 96361; 96374; 99285

== ENCOUNTER 2024-05-01 16:59 | Emergency (ER) | payer OTHER ==
--- NOTE | 2024-05-01 17:34 | ED ---
Female Urogenital HPI - General Chief complaint: Vaginal Bleeding Stated complaint: Vaginal blood clots, weakness, dizziness Time Seen by Provider: 05/01/24 17:05 Source: patient Mode of arrival: ambulatory - History of Present Illness Initial comments: 38-year-old female presenting with chief complaint of vaginal bleeding. About 2 weeks ago she was at her POWER PLANT OPERATOR APPRENTICE office, they noted that the fetus no longer had a heartbeat. She was scheduled for a D&C, however the day before she was sick and they had to cancel it. She then decided just to allow herself to expel the contents. States that she has been having some very large clots recently which has made her concerned. She feels very tired and her legs feel somewhat weak. G5, . - Related Data Home Medications Medication Instructions Recorded Confirmed Cradum(Unk) 1 tab PO DAILY 04/19/24 Allergies Allergy/AdvReac Type Severity Reaction Status Date / Time No Known Allergies Allergy Verified 05/01/24 17:03 Review of Systems ROS Statement: Those systems with pertinent positive or pertinent negative responses have been documented in the HPI. ROS Other: All systems not noted in ROS Statement are negative. Past Medical History Past Medical History: Liver Disease Additional Past Medical History / Comment(s): clean from heroin for 3 years. daily cocaine use for last 1-2 months, drinks up to a 5th of vodka within a day and a half for the last 3months. hep C. Depression, on 04/19/24 reports being sober for a while now History of Any Multi-Drug Resistant Organisms: None Reported Past Surgical History: No Surgical Hx Reported Past Anesthesia/Blood Transfusion Reactions: No Reported Reaction Additional Past Anesthesia/Blood Transfusion Reaction / Comment(s): pt was adpoted ,, had reaction to epidural with 1st baby, shaking,cold, possible fever in her and baby Past Psychological History: ADD/ADHD, Anxiety, Depression Smoking Status: Vaper Past Alcohol Use History: None Reported Past Drug Use History: None Reported - Past Family History Mother Family Medical History: Unable to Obtain Father Family Medical History: Unable to Obtain General Exam General appearance: alert, in no apparent distress Head exam: Present: atraumatic, normocephalic, normal inspection Eye exam: Present: normal appearance, EOMI Neck exam: Present: normal inspection. Absent: meningismus Respiratory exam: Present: normal lung sounds bilaterally. Absent: respiratory distress, wheezes, rales, rhonchi, stridor Cardiovascular Exam: Present: regular rate, normal rhythm, normal heart sounds. Absent: systolic murmur, diastolic murmur, rubs, gallop, clicks GI/Abdominal exam: Present: soft. Absent: distended, tenderness, guarding, rebound, rigid External exam: Present: normal external exam Speculum exam: Present: vaginal bleeding (Mild, easily cleared using 3 moss swabs) By manual exam: Present: normal by manual exam Neurological exam: Present: alert, oriented X3 Psychiatric exam: Present: normal affect, normal mood Skin exam: Present: warm, dry, normal color Course Vital Signs 05/01/24 05/01/24 05/01/24 17:01 18:03 19:33 Temperature 98.4 F 98.1 F Pulse Rate 95 81 78 Respiratory 20 18 18 Rate Blood Pressure 122/65 101/58 102/51 O2 Sat by Pulse 98 97 98 Oximetry Medical Decision Making - Medical Decision Making Was pt. sent in by a medical professional or institution (, PA, SCIENTIFIC PROCESS OPERATOR, urgent care, hospital, or [facility]...) When possible be specific @ -No Did you speak to anyone other than the patient for history (EMS, parent, family, police, friend...)? What history was obtained from this source @ -No Did you review nursing and triage notes (agree or disagree)? Why? @ -I reviewed and agree with nursing and triage notes Were old charts reviewed (outside hosp., previous admission, EMS record, old EKG, old radiological studies, urgent care reports/EKG's, [facility] records)? Report findings @ -No old charts were reviewed Differential Diagnosis (chest pain, altered mental status, abdominal pain women, abdominal pain men, vaginal bleeding, weakness, fever, dyspnea, syncope, headache, dizziness, GI bleed, back pain, seizure, CVA, palpatations, mental health, musculoskeletal)? @ -MDM Differential Vaginal Bleeding: Spontaneous , threatened , molar , ectopic , bloody show, incompetent cervix, abruptioplacenta, placenta previa, uterine rupture, dysfunctional uterine bleeding, hemorrhage, uterine fibroids. ... This is not meant to be an all-inclusive list EKG interpreted by me (3pts min.). @ -As above X-rays interpreted by me (1pt min.). @ -None done CT interpreted by me (1pt min.). @ -None done U/S interpreted by me (1pt. min.). @ -Ultrasound shows heterogenous thickened appearance of the endometrium with internal vascularity suggesting retained products of conception in the appropriate clinical setting What testing was considered but not performed or refused? (CT, X-rays, U/S, labs)? Why? @ -None What meds were considered but not given or refused? Why? @ -None Did you discuss the management of the patient with other professionals (professionals i.e. , PA, SCIENTIFIC PROCESS OPERATOR, lab, RT, psych nurse, social security assessor, hearing examiner, teacher, hearing officer, case managers)? Give summary @ -I spoke with Dr. Swift. She states that since the patient is stable she is able to follow-up in the office. Advised giving 400 mcg of Cytotec to help expel the retained products of conception Was smoking cessation discussed for >3mins.? @ -No Was critical care preformed (if so, how long)? @ -No Were there social determinants of health that impacted care today? How? (Homelessness, low income, unemployed, alcoholism, drug addiction, transportation, low edu. Level, literacy, decrease access to med. care, snf, rehab)? @ -No Was there de-escalation of care discussed even if they declined (Discuss DNR or withdrawal of care, Hospice)? DNR status @ -No What co-morbidities impacted this encounter? (DM, HTN, Smoking, COPD, CAD, Cancer, CVA, ARF, Chemo, Hep., AIDS, mental health diagnosis, sleep apnea, morbid obesity)? @ -None Was patient admitted / discharged? Hospital course, mention meds given and route, prescriptions, significant lab abnormalities, going to OR and other pertinent info. @ -38-year-old female presenting with chief complaint of vaginal bleeding. She is currently undergoing a miscarriage. This has been ongoing for about 2 weeks. History and physical examination are conducted. Hemoglobin 11.3. Patient is hemodynamically stable. hCG is 2018.1. Ultrasound shows retained products of conception. On pelvic exam there is a relatively small amount of blood in the vaginal vault that I am able to easily clear using 3 moss swabs. I spoke with POWER PLANT OPERATOR APPRENTICE on-call Dr. Swift, states that since the patient is stable she is able to follow-up in the office with her POWER PLANT OPERATOR APPRENTICE Dr. Spain. Advise giving 400 mcg of Cytotec. I discussed the plan with the patient. Patient is agreeable for Cytotec, given here in the ER. She will contact her POWER PLANT OPERATOR APPRENTICE's office tomorrow. Discharged. Follow-up with PCP. Report back to ER with any new or worsening symptoms. Discussed return parameters and answered all questions. Patient conveyed verbal understanding and agreed to the plan. I discussed this case in detail with my attending Dr. Pierson Undiagnosed new problem with uncertain prognosis? @ -No Drug Therapy requiring intensive monitoring for toxicity (Heparin, Nitro, Insulin, Cardizem)? @ -No Were any procedures done? @ -No Diagnosis/symptom? @ -Spontaneous Acute, or Chronic, or Acute on Chronic? @ -Acute Uncomplicated (without systemic symptoms) or Complicated (systemic symptoms)? @ -Uncomplicated Side effects of treatment? @ -No Exacerbation, Progression, or Severe Exacerbation? @ -No Poses a threat to life or bodily function? How? (Chest pain, [place], [place], pneumonia, PE, COPD, DKA, ARF, appy, cholecystitis, CVA, Diverticulitis, Homicidal, Suicidal, threat to staff... and all critical care pts) @ -Low likelihood at this time - Lab Data Result diagrams: 05/01/24 17:27 05/01/24 17:27 Lab Results 05/01/24 05/01/24 05/01/24 Range/Units 17:20 17:27 17:27 WBC 6.9 (3.8-10.6) k/uL RBC 3.85 (3.80-5.40) m/uL Hgb 11.3 L (11.4-16.0) gm/dL Hct 33.4 L (34.0-46.0) % MCV 86.6 (80.0-100.0) fL MCH 29.3 (25.0-35.0) pg MCHC 33.8 (31.0-37.0) g/dL RDW 12.0 (11.5-15.5) % Plt Count 194 (150-450) k/uL MPV 6.8 Neutrophils % 62 % Lymphocytes % 31 % Monocytes % 3 % Eosinophils % 2 % Basophils % 0 % Neutrophils # 4.3 (1.3-7.7) k/uL Lymphocytes # 2.1 (1.0-4.8) k/uL Monocytes # 0.2 (0-1.0) k/uL Eosinophils # 0.1 (0-0.7) k/uL Basophils # 0.0 (0-0.2) k/uL PT 10.6 (10.0-12.5) sec INR 1.0 (<1.2) APTT 22.4 (22.0-30.0) sec Sodium (137-145) mmol/L Potassium (3.5-5.1) mmol/L Chloride (98-107) mmol/L Carbon Dioxide (22-30) mmol/L Anion Gap mmol/L BUN (7-17) mg/dL Creatinine (0.52-1.04) mg/dL Est GFR (CKD-EPI)AfAm (>60 ml/min/1.73 sqM) Est GFR (CKD-EPI)NonAf (>60 ml/min/1.73 sqM) Glucose (74-99) mg/dL Calcium (8.4-10.2) mg/dL Total Bilirubin (0.2-1.3) mg/dL AST (14-36) U/L ALT (4-34) U/L Alkaline Phosphatase (38-126) U/L Total Protein (6.3-8.2) g/dL Albumin (3.5-5.0) g/dL HCG, Quant mIU/mL Blood Type Blood Type Confirm O Positive Blood Type Recheck Bld Type Recheck Status Antibody Screen Spec Expiration Date 05/01/24 05/01/24 Range/Units 17:27 17:38 WBC (3.8-10.6) k/uL RBC (3.80-5.40) m/uL Hgb (11.4-16.0) gm/dL Hct (34.0-46.0) % MCV (80.0-100.0) fL MCH (25.0-35.0) pg MCHC (31.0-37.0) g/dL RDW (11.5-15.5) % Plt Count (150-450) k/uL MPV Neutrophils % % Lymphocytes % % Monocytes % % Eosinophils % % Basophils % % Neutrophils # (1.3-7.7) k/uL Lymphocytes # (1.0-4.8) k/uL Monocytes # (0-1.0) k/uL Eosinophils # (0-0.7) k/uL Basophils # (0-0.2) k/uL PT (10.0-12.5) sec INR (<1.2) APTT (22.0-30.0) sec Sodium 141 (137-145) mmol/L Potassium 3.7 (3.5-5.1) mmol/L Chloride 109 H (98-107) mmol/L Carbon Dioxide 24 (22-30) mmol/L Anion Gap 8 mmol/L BUN 9 (7-17) mg/dL Creatinine 0.62 (0.52-1.04) mg/dL Est GFR (CKD-EPI)AfAm >90 (>60 ml/min/1.73 sqM) Est GFR (CKD-EPI)NonAf >90 (>60 ml/min/1.73 sqM) Glucose 81 (74-99) mg/dL Calcium 8.6 (8.4-10.2) mg/dL Total Bilirubin 0.4 (0.2-1.3) mg/dL AST 39 H (14-36) U/L ALT 33 (4-34) U/L Alkaline Phosphatase 66 (38-126) U/L Total Protein 7.5 (6.3-8.2) g/dL Albumin 4.5 (3.5-5.0) g/dL HCG, Quant 2018.1 mIU/mL Blood Type O Positive Blood Type Confirm Blood Type Recheck No Previous Record Bld Type Recheck Status CABO Indicated Antibody Screen NEGATIVE Spec Expiration Date 05/04/20242337 Disposition Clinical Impression: Spontaneous , Retained products of conception Disposition: HOME SELF-CARE Condition: Fair Instructions (If sedation given, give patient instructions): Miscarriage (ED) Additional Instructions: Follow-up with your POWER PLANT OPERATOR APPRENTICE, call the office on Thursday. Report back to ER with any new or worsening symptoms. Is patient prescribed a controlled substance at d/c from ED?: No Referrals: None,Stated [Primary Care Provider] - 1-2 days Susan Hernandez MD [STAFF PHYSICIAN] - 1-2 days Time of Disposition: 18:49
[2024-05-01 17:37] LABS: Basophils % (A) 0 %; Eosinophils # (A) 0.1 k/uL (0-0.7); Eosinophils % (A) 2 %; HCT 33.4 % (34.0-46.0); HGB 11.3 gm/dL (11.4-16.0); Lymphocytes # (A) 2.1 k/uL (1.0-4.8); Lymphocytes % (A) 31 %; MCH 29.3 pg (25.0-35.0); MCHC 33.8 g/dL (31.0-37.0); MCV 86.6 fL (80.0-100.0); Mean Platelet Volume 6.8; Monocytes # (A) 0.2 k/uL (0-1.0); Monocytes % (A) 3 %; Neutrophils # (A) 4.3 k/uL (1.3-7.7); Neutrophils % (A) 62 %; Platelet Count 194 k/uL (150-450); RBC 3.85 m/uL (3.80-5.40); WBC 6.9 k/uL (3.8-10.6)
[2024-05-01 17:45] LABS: Partial Thromboplastin Time 22.4 sec (22.0-30.0); Prothrombin Time 10.6 sec (10.0-12.5)
[2024-05-01 17:49] LABS: ALT 33 U/L (4-34); AST 39 U/L (14-36); African American GFR (CKD) >90 (>60 ml/min/1.73 sqM); Albumin 4.5 g/dL (3.5-5.0); Alkaline Phosphatase 66 U/L (38-126); Anion Gap 8 mmol/L; Blood Urea Nitrogen 9 mg/dL (7-17); Calcium 8.6 mg/dL (8.4-10.2); Carbon Dioxide 24 mmol/L (22-30); Chloride 109 mmol/L (98-107); Glucose 81 mg/dL (74-99); Non-African American GFR(CKD) >90 (>60 ml/min/1.73 sqM); Potassium 3.7 mmol/L (3.5-5.1); Sodium 141 mmol/L (137-145); Total Bilirubin 0.4 mg/dL (0.2-1.3); Total Protein 7.5 g/dL (6.3-8.2)
[2024-05-01] MEDS: SODIUM CHLORIDE 0.9% 1,000 ML IV ONE (18:02)
[2024-05-01 18:04] VITALS: RESP 18
[2024-05-01 18:06] LABS: HCG,Quantitative Serum 2018.1 mIU/mL
--- NOTE | 2024-05-01 18:13 | US ---
EXAMINATION TYPE: US pelvic complete DATE OF EXAM: 05/01/2024 COMPARISON: NONE CLINICAL INDICATION: Female, 38 years old with history of Miscarriage; Pt had a miscarriage on with a D&C scheduled for the . Pt had to cancel it due to having the flu. Pt is still passing large clots with heavy bleeding. Rule out retained products. TECHNIQUE: Transabdominal (TA). Transabdominal grayscale sonographic images of the pelvis were acquired FINDINGS: Date of LMP: unknown. Pt was around 7 weeks when miscarried EXAM MEASUREMENTS: Uterus: 8.7 x 6.1 x 5.3 cm Endometrial Stripe: 1.6 cm Right Ovary: 3.7 x 2.5 x 2.0 cm Left Ovary: 2.5 x 1.8 x 2.3 cm 1. Uterus: Anteverted wnl 2. Endometrium: thickened and heterogeneous. There is some vascularity seen inside. 3. Right Ovary: wnl 4. Left Ovary: wnl 5. Bilateral Adnexa: wnl 6. Posterior cul-de-sac: wnl IMPRESSION: Heterogeneous thickened appearance of the endometrium with internal vascularity suggesting retained p roducts of conception in the appropriate clinical setting. [facility], , 05/01/2024 6:11 PM
[2024-05-01] MEDS: miSOPROStoL 200 MCG TAB PO STA (19:30)
[2024-05-01 19:34] VITALS: BP 102/51; PULSE 78; TEMP 98.1
== END 2024-05-01 19:35 | disposition home or self-care (01) ==
LOC: EC 16:59
DX: O03.4 Incomplete spontaneous abortion without complication (principal); O99.331 Smoking (tobacco) complicating pregnancy, first trimester; F17.290 Nicotine dependence, other tobacco product, uncomplicated
CPT/HCPCS: 36415; 86900; 86901; 80053; 85025; 85610; 85730; 86850; 84702; 76856; 99284; 96360; 96361; S0191

== ENCOUNTER 2024-11-21 11:57 | Emergency (ER) | payer OTHER ==
--- NOTE | 2024-11-21 13:47 | ED ---
Alcohol HPI - General Source: patient, family, RN notes reviewed Mode of arrival: ambulatory Limitations: no limitations <Apolol Vera - Last Filed: 11/21/24 13:46> - General Source: patient, RN notes reviewed Mode of arrival: ambulatory Limitations: no limitations <Boris Andrews - Last Filed: 11/21/24 15:50> - General Chief Complaint: Alcohol Stated Complaint: ETOH Time Seen by Provider: 11/21/24 13:00 - History of Present Illness Initial Comments: Quick note 39-year-old female presents emergency department complaint of alcohol abuse alcohol withdrawal. Patient states she is a month sober recent started drinking again she states she is very shaky she states that she usually has to come in for her withdrawal because she has had seizures in the past. (Apollo Vera) Patient is a 39-year-old female present to the emergency department with alcohol problems. Patient does have history of alcoholism. Patient has been clean for over a year and started drinking a week ago. Patient drinks around 1/5 of alcohol per day. Last alcohol intake was around 5 this morning. Patient feels shaky. Patient is worried about withdrawal. Patient states she does have a history of withdrawal seizure previously. (Boris Andrews) - Related Data Home Medications Medication Instructions Recorded Confirmed Cradum(Unk) 1 tab PO DAILY 04/19/24 Allergies Allergy/AdvReac Type Severity Reaction Status Date / Time No Known Allergies Allergy Verified 11/21/24 12:04 Review of Systems ROS Other: All systems not noted in ROS Statement are negative. <Apollo Vera - Last Filed: 11/21/24 13:46> ROS Other: All systems not noted in ROS Statement are negative. Constitutional: Denies: fever Eyes: Denies: eye pain ENT: Denies: ear pain Respiratory: Denies: cough Cardiovascular: Denies: chest pain Gastrointestinal: Denies: abdominal pain, nausea, vomiting <Boris Andrews - Last Filed: 11/21/24 15:50> ROS Statement: Those systems with pertinent positive or pertinent negative responses have been documented in the HPI. Past Medical History Past Medical History: Liver Disease, Seizure Disorder Additional Past Medical History / Comment(s): clean from heroin for 3 years. daily cocaine use for last 1-2 months, drinks up to a 5th of vodka within a day and a half for the last 3months. hep C. Depression, on 04/19/24 reports being sober for a while now History of Any Multi-Drug Resistant Organisms: None Reported Past Surgical History: No Surgical Hx Reported Past Anesthesia/Blood Transfusion Reactions: No Reported Reaction Additional Past Anesthesia/Blood Transfusion Reaction / Comment(s): pt was adpoted ,, had reaction to epidural with 1st baby, shaking,cold, possible fever in her and baby Past Psychological History: ADD/ADHD, Anxiety, Depression Smoking Status: Vaper Past Alcohol Use History: None Reported Past Drug Use History: None Reported - Past Family History Mother Family Medical History: Unable to Obtain Father Family Medical History: Unable to Obtain <Apollo Vera - Last Filed: 11/21/24 13:46> General Exam Limitations: no limitations <Apollo Vera - Last Filed: 11/21/24 13:46> Limitations: no limitations General appearance: alert, in no apparent distress Head exam: Present: atraumatic Eye exam: Present: normal appearance, PERRL, EOMI. Absent: nystagmus ENT exam: Present: normal oropharynx Neck exam: Present: normal inspection Respiratory exam: Present: normal lung sounds bilaterally Cardiovascular Exam: Present: regular rate, normal rhythm GI/Abdominal exam: Present: soft. Absent: tenderness Extremities exam: Present: normal inspection. Absent: pedal edema, calf tenderness Neurological exam: Present: alert, other (Mild resting tremor). Absent: motor sensory deficit Psychiatric exam: Present: normal affect, normal mood Skin exam: Present: normal color <Boris Andrews - Last Filed: 11/21/24 15:50> - General Exam Comments Initial Comments: Visual Physical Exam Vital signs reviewed General: Well-appearing, nontoxic, no acute distress. Head: Normocephalic, atraumatic Eyes: PERRLA, EOMI ENT: Airway patent Chest: Nonlabored breathing Skin: No visual rash, normal skin tone Neuro: Alert and oriented 3 Musculoskeletal: No gross abnormalities (Apollo Vera) Course Vital Signs 11/21/24 11/21/24 12:00 14:57 Temperature 98.0 F Pulse Rate 94 74 Respiratory 18 20 Rate Blood Pressure 141/81 122/78 O2 Sat by Pulse 96 98 Oximetry Medical Decision Making <Apollo Vera - Last Filed: 11/21/24 13:46> - Lab Data Result diagrams: 11/21/24 14:46 11/21/24 14:46 <Boris Andrews - Last Filed: 11/21/24 15:50> - Medical Decision Making I completed the quick note portion of this chart signed Apollo Vera PA-C (Apollo Vera) Was pt. sent in by a medical professional or institution (, [facility], MILITARY SCIENCE INSTRUCTOR, urgent care, hospital, or fpc...) When possible be specific @ -No Did you speak to anyone other than the patient for history (EMS, parent, family, police, friend...)? What history was obtained from this source @ -No Did you review nursing and triage notes (agree or disagree)? Why? @ -I reviewed and agree with nursing and triage notes Were old charts reviewed (outside hosp., previous admission, EMS record, old EKG, old radiological studies, urgent care reports/EKG's, fpc records)? Report findings @ -No old charts were reviewed Differential Diagnosis (chest pain, altered mental status, abdominal pain women, abdominal pain men, vaginal bleeding, weakness, fever, dyspnea, syncope, headache, dizziness, GI bleed, back pain, seizure, CVA, palpatations, mental health, musculoskeletal)? @ -Differential Weakness: Hypoglycemia, shock, sepsis, hyponatremia, anemia, infection, MA, ETOH, adverse medicine reaction, overdose, stroke, this is not meant to be an all-inclusive list. EKG interpreted by me (3pts min.). @ -As above X-rays interpreted by me (1pt min.). @ -None done CT interpreted by me (1pt min.). @ -None done U/S interpreted by me (1pt. min.). @ -None done What testing was considered but not performed or refused? (CT, X-rays, U/S, labs)? Why? @ -None What meds were considered but not given or refused? Why? @ -None Did you discuss the management of the patient with other professionals (professionals i.e. [facility], MILITARY SCIENCE INSTRUCTOR, lab, RT, psych nurse, clinical social work therapist, duty engineer, teacher, employment security officer, watch caser)? Give summary @ -No Was smoking cessation discussed for >3mins.? @ -No Was critical care preformed (if so, how long)? @ -No Were there social determinants of health that impacted care today? How? (Homelessness, low income, unemployed, alcoholism, drug addiction, trans portation, low edu. Level, literacy, decrease access to med. care, care home, rehab)? @ -No Was there de-escalation of care discussed even if they declined (Discuss DNR or withdrawal of care, Hospice)? DNR status @ -No What co-morbidities impacted this encounter? (DM, HTN, Smoking, COPD, CAD, Cancer, CVA, ARF, Chemo, Hep., AIDS, mental health diagnosis, sleep apnea, morbid obesity)? @ -None Was patient admitted / discharged? Hospital course, mention meds given and route, prescriptions, significant lab abnormalities, going to OR and other pertinent info. @ -Patient presents to emergency department with concerns for alcohol withdrawal. Patient provided fluids and Ativan. Labs unremarkable. On reevaluation patient is feeling much better and comfortable with discharge home. Patient states she does have plans set up for rehab facility tomorrow. Patient is receptive for a dose of Ativan to take home. Undiagnosed new problem with uncertain prognosis? @ -No Drug Therapy requiring intensive monitoring for toxicity (Heparin, Nitro, Insulin, Cardizem)? @ -No Were any procedures done? @ -No Diagnosis/symptom? @ -Alcohol withdrawal Acute, or Chronic, or Acute on Chronic? @ -Acute Uncomplicated (without systemic symptoms) or Complicated (systemic symptoms)? @ -Default Side effects of treatment? @ -No Exacerbation, Progression, or Severe Exacerbation? @ -No Poses a threat to life or bodily function? How? (Chest pain, USA, MA, pneumonia, PE, COPD, DKA, ARF, appy, cholecystitis, CVA, Diverticulitis, Homicidal, Suicidal, threat to staff... and all critical care pts) @ -No (Boris Andrews) - Lab Data Lab Results 11/21/24 11/21/24 Range/Units 14:46 14:46 WBC 8.59 (4.50-10.00) 10*3/uL RBC 4.45 (4.10-5.20) 10*6/uL Hgb 12.7 (12.0-15.0) g/dL Hct 38.1 (37.2-46.3) % MCV 85.6 (80.0-97.0) fL MCH 28.5 (27.0-32.0) pg MCHC 33.3 (32.0-37.0) g/dL Plt Count 203 (140-440) 10*3/uL MPV 8.6 L (9.5-12.2) fL Immature Gran % (Auto) 0.2 % Neutrophils % 65.1 % Lymphocytes % 28.4 % Monocytes % 5.6 % Eosinophils % 0.5 % Basophils % 0.2 % Immature Gran # 0.02 (0.00-0.04) 10*3/uL Neutrophils # 5.59 (1.80-7.70) 10*3/uL Lymphocytes # 2.44 (0.90-5.00) 10*3/uL Monocytes # 0.48 (0.20-1.00) 10*3/uL Eosinophils # 0.04 (0.04-0.35) 10*3/uL Basophils # 0.02 (0.00-0.10) 10*3/uL Sodium 144 (137-145) mmol/L Potassium 3.9 (3.5-5.1) mmol/L Chloride 102 (98-107) mmol/L Carbon Dioxide 30 (22-30) mmol/L Anion Gap 12 mmol/L BUN 6 L (7-17) mg/dL Creatinine 0.52 (0.52-1.04) mg/dL Est GFR (CKD-EPI)AfAm >90 (>60 ml/min/1.73 sqM) Est GFR (CKD-EPI)NonAf >90 (>60 ml/min/1.73 sqM) Glucose 83 (74-99) mg/dL Calcium 8.9 (8.4-10.2) mg/dL Magnesium 1.7 (1.6-2.3) mg/dL Total Bilirubin 0.7 (0.2-1.3) mg/dL AST 75 H (14-36) U/L ALT 55 H (4-34) U/L Alkaline Phosphatase 77 (38-126) U/L Total Protein 8.1 (6.3-8.2) g/dL Albumin 4.6 (3.5-5.0) g/dL Lipase 82 (23-300) U/L Serum Alcohol 86 mg/dL Disposition <Apollo Vera - Last Filed: 11/21/24 13:46> Is patient prescribed a controlled substance at d/c from ED?: No Time of Disposition: 15:50 <Boris Andrews - Last Filed: 11/21/24 15:50> Clinical Impression: Alcohol withdrawal syndrome Disposition: HOME SELF-CARE Condition: Stable Instructions (If sedation given, give patient instructions): Alcohol Withdrawal (ED) Additional Instructions: Please do follow-up with your primary care physician in the next couple of days for recheck. Return for seizures, confusion, change or worsening symptoms or other concerns. Ativan is for you to take home late tonight if needed. Please follow-up with rehab facility in the morning as planned. Referrals: None,Stated [Primary Care Provider] - 1-2 days Forms: [facility]
[2024-11-21 14:54] LABS: Basophils # (A) 0.02 10*3/uL (0.00-0.10); Basophils % (A) 0.2 %; Eosinophils # (A) 0.04 10*3/uL (0.04-0.35); Eosinophils % (A) 0.5 %; HCT 38.1 % (37.2-46.3); HGB 12.7 g/dL (12.0-15.0); Lymphocytes # (A) 2.44 10*3/uL (0.90-5.00); Lymphocytes % (A) 28.4 %; MCH 28.5 pg (27.0-32.0); MCHC 33.3 g/dL (32.0-37.0); MCV 85.6 fL (80.0-97.0); Mean Platelet Volume 8.6 fL (9.5-12.2); Monocytes # (A) 0.48 10*3/uL (0.20-1.00); Monocytes % (A) 5.6 %; Neutrophils # (A) 5.59 10*3/uL (1.80-7.70); Neutrophils % (A) 65.1 %; Platelet Count 203 10*3/uL (140-440); RBC 4.45 10*6/uL (4.10-5.20); RDW 12.7 % (11.5-14.5); WBC 8.59 10*3/uL (4.50-10.00)
[2024-11-21] MEDS: LORazepam 1 MG/0.5 ML VIAL IV STA (15:09)
[2024-11-21] MEDS: THIAMINE 100 MG TAB PO SCH (15:09)
[2024-11-21 15:13] LABS: ALT 55 U/L (4-34); AST 75 U/L (14-36); African American GFR (CKD) >90 (>60 ml/min/1.73 sqM); Albumin 4.6 g/dL (3.5-5.0); Alkaline Phosphatase 77 U/L (38-126); Anion Gap 12 mmol/L; Blood Urea Nitrogen 6 mg/dL (7-17); Calcium 8.9 mg/dL (8.4-10.2); Carbon Dioxide 30 mmol/L (22-30); Chloride 102 mmol/L (98-107); Glucose 83 mg/dL (74-99); Lipase 82 U/L (23-300); Magnesium 1.7 mg/dL (1.6-2.3); Non-African American GFR(CKD) >90 (>60 ml/min/1.73 sqM); Potassium 3.9 mmol/L (3.5-5.1); Sodium 144 mmol/L (137-145); Total Bilirubin 0.7 mg/dL (0.2-1.3); Total Protein 8.1 g/dL (6.3-8.2)
[2024-11-21] MEDS: SODIUM CHLORIDE 0.9% 500 ML 500 ML IV STA (15:14)
[2024-11-21 15:32] LABS: Alcohol 86 mg/dL
[2024-11-21] MEDS: LORazepam 1 MG TAB PO STA (15:59)
[2024-11-21 16:08] VITALS: BP 135/83; PULSE 92; RESP 18; TEMP 97.9
== END 2024-11-21 16:08 | disposition home or self-care (01) ==
LOC: EC 11:57
DX: F10.239 Alcohol dependence with withdrawal, unspecified (principal); F17.290 Nicotine dependence, other tobacco product, uncomplicated; Y90.9 Presence of alcohol in blood, level not specified
CPT/HCPCS: 36415; 80053; 83690; 83735; 85025; 99284; 96374; 96361; G0480; J2060; 80320